=== PATIENT | female | born 1985 | race Caucasian/White ===

== ENCOUNTER 2016-09-22 18:10 | Emergency (ER) | payer MEDICAID ==
[2016-09-22 18:14] VITALS: BP 145/83; PULSE 81; RESP 16; TEMP 98.5; O2SAT 100
[2016-09-22] MEDS ORDERED: Lidocaine 1% Inj (20ml) ONE (19:07)
--- NOTE | 2016-09-22 19:37 | ED PDOC ---
HPI: Wound Care - HPI Time Seen by Provider: 09/22/16 19:34 Chief Complaint (Nursing): Upper Extremity Problem/Injury Chief Complaint (Provider): laceration History Per: Patient Additional Complaint(s): 30yo F in ED sustained laceration to left fifth finger s/p varnish blender blade while cleaning tetantus is uptodate. pt admits to bleeding. no dec ROM of finger no numbness and is right hand dominant Past Medical History Reviewed: Historical Data, Nursing Documentation, Vital Signs Vital Signs: Last Vital Signs Temp 98.5 F 09/22/16 18:11 Pulse 81 09/22/16 18:11 Resp 16 09/22/16 18:11 BP 145/83 09/22/16 18:11 Pulse Ox 100 09/22/16 18:11 - Medical History PMH: No Chronic Diseases - Family History Family History: States: No Known Family Hx, Unknown Family Hx - Allergies Allergies/Adverse Reactions: Allergies Allergy/AdvReac Type Severity Reaction Status Date / Time iodine Allergy RASH Verified 06/12/16 18:15 Review of Systems ROS Statement: Except As Marked, All Systems Reviewed And Found Negative Constitutional: Negative for: Fever, Chills Skin: Positive for: Lesions Physical Exam - Reviewed Nursing Documentation Reviewed: Yes Vital Signs Reviewed: Yes - Physical Exam Appears: Positive for: Well, Non-toxic, No Acute Distress Head Exam: Positive for: ATRAUMATIC, NORMAL INSPECTION, NORMOCEPHALIC Skin: Positive for: Normal Color, Warm, DRY Cardiovascular/Chest: Positive for: Regular Rate, Rhythm Respiratory: Positive for: CNT, Normal Breath Sounds Back: Positive for: Other (right hand:fifith digit volar side laceration .75cm linear active bleeding FROM digit no tendon involvement no FB noted. no swelling no defomirty. ) Extremity: Positive for: Normal ROM Neurologic/Psych: Positive for: Alert, Oriented - ECG O2 Sat by Pulse Oximetry: 100 Procedure: Wound Repair - Time Performed Time Performed: 19:39 - Time Out Time Out: Side verified, Site verified, Patient ID confirmed, Sterile procedures obs. - Consent Obtained Consent obtained: Emergent consent implied - Performed by Performed by: Mid-level Provider - Indications Indication(s):: Laceration - Location Finger:: Right, Little Shape:: Linear Dimensions Length cm: .75 Depth:: Epidermis - Anesthetic Technique Anesthetic Technique: Local Local/Regional Anesthetic:: Lidocaine 1% - Debris Debris:: None - Irrigated Irrigated with ml of normal saline: NS and betadine irrigiation - Complexity Complexity:: Simple (one layer) - Wound repair method Sutures:: # (5), Size (5-0), Type (nylon), Technique (simple interrupted) - Patient tolerated procedure Patient Tolerated Procedure:: Well (given finger splint.) Medical Decision Making Medical Decision Making: pt advised to wear splint not wet wound and return in 6-7 days for removal. Disposition - Clinical Impression Clinical Impression: Laceration - Patient ED Disposition Is Patient to be Admitted: No Counseled Patient/Family Regarding: Diagnosis, Need For Followup - Disposition Disposition: Routine/Home Disposition Time: 19:41 Condition: STABLE Additional Instructions: return to ED in 6-7 days for removal keep wound clean and do not wet Instructions: Laceration (ED), Care For Your Stitches (ED), Finger Laceration ( ED)
== END 2016-09-22 19:47 | disposition home or self-care (01) ==
LOC: H.ER 18:10
DX: S61.217A Laceration without foreign body of left little finger without damage to nail, initial encounter (principal); W29.0XXA Contact with powered kitchen appliance, initial encounter; Y93.G1 Activity, food preparation and clean up; Y92.9 Unspecified place or not applicable

== ENCOUNTER 2017-06-21 15:51 | Emergency (ER) | payer MEDICAID ==
[2017-06-21 15:59] VITALS: BP 141/76; PULSE 70; RESP 16; TEMP 97.8; O2SAT 100
[2017-06-21 17:58] LABS: SQUAMOUS EPITHIAL 1 /hpf (0-5); URINE BACTERIA RARE (<OCC); URINE BILIRUBIN NEGATIVE (NEGATIVE); URINE BLOOD LARGE (NEGATIVE); URINE CLARITY CLOUDY (Clear); URINE COLOR YELLOW (YELLOW); URINE GLUCOSE (UA) NEG (Normal); URINE LEUKOCYTE ESTERASE LARGE Leu/uL (Negative); URINE NITRATE NEGATIVE (NEGATIVE); URINE PROTEIN NEGATIVE (NEGATIVE); URINE UROBILINOGEN 0.2-1.0 mg/dL (0.2-1.0)
--- NOTE | 2017-06-21 18:29 | ED PDOC ---
HPI: Abdomen Time Seen by Provider: 06/21/17 16:16 Chief Complaint (Nursing): Abdominal Pain Chief Complaint (Provider): Suprapubic pressure with urination, History Per: Patient History/Exam Limitations: no limitations Onset/Duration Of Symptoms: Days (1) Outside of [place] travel?: No Current Symptoms Are (Timing): Still Present Location Of Pain/Discomfort: Suprapubic Quality Of Discomfort: Dull Additional Complaint(s): Pt reports dysuria and suprapubic pain, central only during urination. Pt states she has appointment with OB tomorrow for . PT states she is approx 8 weeks . No vaginal bleeding. No vaginal discharge. Past Medical History Reviewed: Historical Data, Nursing Documentation, Vital Signs Vital Signs: Last Vital Signs Temp 97.8 F 06/21/17 15:56 Pulse 70 06/21/17 15:56 Resp 16 06/21/17 15:56 BP 141/76 06/21/17 15:56 Pulse Ox 100 06/21/17 15:56 - Medical History PMH: No Chronic Diseases - Surgical History Surgical History: No Surg Hx - Family History Family History: States: Unknown Family Hx - Living Arrangements Living Arrangements: With Family - Social History Current smoker - smoking cessation education provided: No - Home Medications Home Medications: Ambulatory Orders Medication Instructions Recorded Nitrofurantoin Macrocrystals 100 mg PO BID #10 cap 06/21/17 [Macrobid] - Allergies Allergies/Adverse Reactions: Allergies Allergy/AdvReac Type Severity Reaction Status Date / Time iodine Allergy RASH Verified 06/21/17 15:56 Review of Systems ROS Statement: Except As Marked, All Systems Reviewed And Found Negative Constitutional: Negative for: Fever, Chills Genitourinary Female: Positive for: Dysuria, Frequency. Negative for: Vaginal Discharge, Vaginal Bleeding, Pelvic Pain Physical Exam - Reviewed Nursing Documentation Reviewed: Yes Vital Signs Reviewed: Yes - Physical Exam Appears: Positive for: Well, Non-toxic, No Acute Distress Head Exam: Positive for: ATRAUMATIC, NORMAL INSPECTION, NORMOCEPHALIC Skin: Positive for: Normal Color, Warm, DRY Eye Exam: Positive for: Normal appearance ENT: Positive for: Normal ENT Inspection Neck: Positive for: Normal, Painless ROM Cardiovascular/Chest: Positive for: Regular Rate, Rhythm Respiratory: Positive for: CNT, Normal Breath Sounds Gastrointestinal/Abdominal: Positive for: Normal Exam, Bowel Sounds, Soft. Negative for: Tenderness Back: Positive for: Normal Inspection. Negative for: L CVA Tenderness, R CVA Tenderness Extremity: Positive for: Normal ROM Neurologic/Psych: Positive for: Alert, Oriented - ECG O2 Sat by Pulse Oximetry: 100 Disposition - Clinical Impression Clinical Impression: UTI (urinary tract infection) - Patient ED Disposition Is Patient to be Admitted: No Counseled Patient/Family Regarding: Diagnosis, Need For Followup, Rx Given - Disposition Disposition: Routine/Home Disposition Time: 18:27 Condition: STABLE Prescriptions: Nitrofurantoin Macrocrystals [Macrobid] 100 mg PO BID #10 cap Instructions: Urinary Tract Infection in Women (ED)
== END 2017-06-21 18:30 | disposition home or self-care (01) ==
LOC: H.ER 15:51
DX: O23.40 Unspecified infection of urinary tract in pregnancy, unspecified trimester (principal)

== ENCOUNTER 2017-08-24 19:08 | Inpatient (IN) | payer MEDICAID ==
--- NOTE | 2017-08-24 19:44 | ED PDOC ---
HPI: Abdomen Time Seen by Provider: 08/24/17 19:19 Chief Complaint (Nursing): Abdominal Pain History Per: Patient History/Exam Limitations: no limitations Onset/Duration Of Symptoms: Days (2), Gradual, Worse Since (today) Current Symptoms Are (Timing): Still Present Severity: Mild Location Of Pain/Discomfort: RLQ, Suprapubic Quality Of Discomfort: Dull, Aching Associated Symptoms: denies: Fever, Chills, Nausea, Vomiting, Diarrhea, Back Pain, Chest Pain, Constipation, Urinary Symptoms Exacerbating Factors: None Alleviating Factors: None Additional History Per: Patient Additional Complaint(s): 16 weeks complaining of abdominal cramping. Had spotting this morning but none now. no trauma no urinary complaints Past Medical History Reviewed: Historical Data, Nursing Documentation, Vital Signs Vital Signs: Last Vital Signs Temp 98.1 F 08/24/17 19:11 Pulse 98 H 08/24/17 19:11 Resp 18 08/24/17 19:11 BP 122/88 08/24/17 19:11 Pulse Ox 99 08/24/17 19:46 - Family History Family History: States: Unknown Family Hx - Living Arrangements Living Arrangements: With Family - Social History Current smoker - smoking cessation education provided: No - Home Medications Home Medications: Ambulatory Orders Medication Instructions Recorded No Known Home Med 08/24/17 - Allergies Allergies/Adverse Reactions: Allergies Allergy/AdvReac Type Severity Reaction Status Date / Time iodine Allergy RASH Verified 06/21/17 15:56 Review of Systems ROS Statement: Except As Marked, All Systems Reviewed And Found Negative Constitutional: Negative for: Fever, Chills Cardiovascular: Negative for: Chest Pain, Palpitations Respiratory: Negative for: Cough, Shortness of Breath Gastrointestinal: Negative for: Nausea, Vomiting, Abdominal Pain Musculoskeletal: Negative for: Neck Pain Neurological: Negative for: Weakness, Numbness Physical Exam - Reviewed Nursing Documentation Reviewed: Yes Vital Signs Reviewed: Yes - Physical Exam Appears: Positive for: Uncomfortable Head Exam: Positive for: ATRAUMATIC, NORMAL INSPECTION, NORMOCEPHALIC Eye Exam: Positive for: Normal appearance Neck: Positive for: Normal, Painless ROM, Supple. Negative for: Decreased ROM, Limited ROM, Trachea Midline Cardiovascular/Chest: Positive for: Regular Rate, Rhythm, Chest Non Tender. Negative for: Edema, Murmur, Bradycardia, Tachycardia Respiratory: Positive for: Normal Breath Sounds. Negative for: Decreased Breath Sounds, Accessory Muscle Use, Crackles, Rales, Rhonchi, Stridor, Wheezing , Respiratory Distress Gastrointestinal/Abdominal: Positive for: Normal Exam, Bowel Sounds, Soft, Tenderness (mild rlq). Negative for: Organomegaly, Mass, Distended, Guarding, Rebound, Hernia, Asicites Back: Positive for: Normal Inspection. Negative for: L CVA Tenderness, R CVA Tenderness, Vertebral Tenderness Extremity: Positive for: Normal ROM. Negative for: Tenderness, Pedal Edema, Calf Tenderness, Deformity, Swelling Neurologic/Psych: Positive for: Alert, supervisor of guidance and testing II-XII, Oriented, Mood/Affect (calm) . Negative for: Motor/Sensory Deficits, Aphasia, Facial Droop - Laboratory Results Result Diagrams: 08/24/17 20:17 08/24/17 20:17 - ECG O2 Sat by Pulse Oximetry: 99 Pulse Ox Interpretation: Normal - Progress ED Course And Treament: pt seen and eval by surgical nurse advise gb us and mri in the am, repeat abd exam reveals mild tenderness but unchanged, per Dr samuel will have ob baton twirler to consult. all of pt's questions were answered and pt agree's with plan. Re-evaluation Time: 23:06 Condition: Improved Disposition - Clinical Impression Clinical Impression: Abdominal pain during - Patient ED Disposition Is Patient to be Admitted: Yes Counseled Patient/Family Regarding: Studies Performed, Diagnosis - Disposition Disposition Time: 22:00 Condition: STABLE Forms: [facility] (German) - Pt Status Changed To: Hospital Disposition Of: Observation - POA Present On Arrival: None
[2017-08-24 20:20] LABS: SQUAMOUS EPITHIAL 12 /hpf (0-5); URINE BACTERIA RARE (<OCC); URINE BILIRUBIN NEGATIVE (NEGATIVE); URINE BLOOD NEGATIVE (NEGATIVE); URINE CLARITY CLOUDY (Clear); URINE COLOR YELLOW (YELLOW); URINE GLUCOSE (UA) NEG (Normal); URINE LEUKOCYTE ESTERASE NEG Leu/uL (Negative); URINE PROTEIN NEGATIVE (NEGATIVE); URINE UROBILINOGEN 0.2-1.0 mg/dL (0.2-1.0)
[2017-08-24 20:25] LABS: BASO # 0.1 K/uL (0.0-0.2); BASO % 0.7 % (0.0-2.0); EOS # 0.1 K/uL (0.0-0.7); EOS % 1.2 % (0.0-4.0); HEMOGLOBIN 12.4 g/dL (12.0-16.0); LYMPH # 3.4 K/uL (1.0-4.3); LYMPH % 27.3 % (20.0-40.0); MEAN CELL VOLUME 80.9 fl (81.0-99.0); MEAN CORPUSCULAR HGB CONC 33.4 g/dL (33.0-37.0); MEAN PLATELET VOLUME 9.3 fl (7.2-11.7); MONO # 0.9 K/uL (0.0-0.8); MONO % 7.5 % (0.0-10.0); NEUT # 7.8 K/uL (1.8-7.0); NEUT % 63.3 % (50.0-75.0); RBC 4.61 Mil/uL (3.80-5.20); WHITE BLOOD COUNT 12.4 K/uL (4.8-10.8)
[2017-08-24 20:36] LABS: ALBUMIN 3.7 g/dL (3.5-5.0); ALT/SGPT 20 U/L (9-52); AMYLASE 64 U/L (30-110); AST/SGOT 40 U/L (14-36); BLOOD UREA NITROGEN 11 mg/dl (7-17); CALCIUM 9.3 mg/dL (8.4-10.2); GFR AFRICAN-AMERICAN > 60; GFR NON-AFRICAN AMERICAN > 60; LIPASE 66 U/L (23-300)
--- NOTE | 2017-08-24 21:06 | US ---
EXAM: US Abdomen Limited, Appendix CLINICAL HISTORY: 31 years old, female; Pain; Abdominal pain; Localized; Lower; ; Additional info: Rlq abd pain TECHNIQUE: Real-time ultrasound of the right lower quadrant with image documentation. COMPARISON: No relevant prior studies available. FINDINGS: Appendix: Not visualized. Free fluid: No significant free fluid. IMPRESSION: 1. Nonvisualization of appendix.
--- NOTE | 2017-08-24 22:18 | CP.PCM.CON ---
<Lg Kimble - Last Filed: 08/25/17 06:23> History of Present Illness - History of Present Illness History of Present Illness: General Surgery Consult Note for Dr. Hoffman Reason for consult: Right sided abdominal pain 31 F 16 weeks 3 days presents to [facility] for complaint of Right sided abdominal pain. Patient was seen and evaluated in the ED. Patient states that pain began 1 day ago while sitting at home. Patient reports sudden onset. She has never experienced pain like this before. Patient also states an episode of vaginal spotting. She began to worry and decided to come to the ED since the pain lasted for 24 hours without resolving. She rates pain as moderate to severe. She describes pain as constant and sharp located in RUQ/RLQ. Movement and palpation exacerbates pain while nothing alleviates it. Patient admits nausea that began in ED. Denies fever/chills, chest pain, SOB, vomiting, diarrhea, urinary symptoms. PMD: [facility] TREE CARE FOREMAN: Dr. 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 - Review of Systems All systems: reviewed and no additional remarkable complaints except (12 point ROS negative unless otherwise stated in HPI) Past Patient History - Infectious Disease Hx of Infectious Diseases: None - Past Social History Smoking Status: Never Smoked - PSYCHIATRIC Hx Substance Use: No - SURGICAL HISTORY Hx Surgeries: Yes Hx Section: Yes (x1) Other/Comment: "lumpectomy" - ANESTHESIA Hx Anesthesia: Yes Hx Anesthesia Reactions: No Meds Allergies/Adverse Reactions: Allergies Allergy/AdvReac Type Severity Reaction Status Date / Time iodine Allergy RASH Verified 06/21/17 15:56 Physical Exam - Constitutional Appears: No Acute Distress - Head Exam Head Exam: ATRAUMATIC, NORMOCEPHALIC - Eye Exam Eye Exam: EOMI, Normal appearance Pupil Exam: PERRL - ENT Exam ENT Exam: Mucous Membranes Moist - Neck Exam Neck exam: Negative for: Tenderness - Respiratory Exam Respiratory Exam: NORMAL BREATHING PATTERN - Cardiovascular Exam Cardiovascular Exam: REGULAR RHYTHM - GI/Abdominal Exam GI & Abdominal Exam: Distended (16 weeks ), Soft, Tenderness (RUQ/RLQ). absent: Firm, Guarding, Hernia, Rebound, Rigid - Extremities Exam Extremities exam: Positive for: pedal pulses present. Negative for: calf tenderness - Back Exam Back exam: absent: CVA tenderness (L), CVA tenderness (R) - Neurological Exam Neurological exam: Alert, CN II-XII Intact, Oriented x3 - Skin Skin Exam: Dry, Intact, Normal Color, Warm Results - Vital Signs Recent Vital Signs: Last Vital Signs Temp 98.1 F 08/24/17 19:11 Pulse 98 H 08/24/17 19:11 Resp 18 08/24/17 19:11 BP 122/88 08/24/17 19:11 Pulse Ox 99 08/24/17 19:46 - Labs Result Diagrams: 08/24/17 20:17 08/24/17 20:17 Labs: Laboratory Results - last 24 hr 08/24/17 08/24/17 08/24/17 20:08 20:17 20:17 WBC 12.4 H RBC 4.61 Hgb 12.4 Hct 37.3 MCV 80.9 L MCH 27.0 MCHC 33.4 RDW 14.0 Plt Count 201 MPV 9.3 Neut % (Auto) 63.3 Lymph % (Auto) 27.3 [place] % (Auto) 7.5 Eos % (Auto) 1.2 Baso % (Auto) 0.7 Neut # (Auto) 7.8 H Lymph # (Auto) 3.4 [place] # (Auto) 0.9 H Eos # (Auto) 0.1 Baso # (Auto) 0.1 Sodium 139 Potassium 4.4 Chloride 100 Carbon Dioxide 26 Anion Gap 17 BUN 11 Creatinine 0.6 L Est GFR ( Amer) > 60 Est GFR (Non-Af Amer) > 60 Random Glucose 74 Calcium 9.3 Total Bilirubin 0.6 AST 40 H ALT 20 Alkaline Phosphatase 43 Total Protein 7.2 Albumin 3.7 Globulin 3.5 Albumin/Globulin Ratio 1.0 Amylase 64 Lipase 66 Urine Color Yellow Urine Clarity Cloudy Urine pH 6.0 Ur Specific [place] 1.021 Urine Protein Negative Urine Glucose (UA) Neg Urine Ketones Negative Urine Blood Negative Urine Nitrate Negative Urine Bilirubin Negative Urine Urobilinogen 0.2-1.0 Ur Leukocyte Esterase Neg Urine RBC (Auto) 2 Urine Microscopic WBC 1 Ur Squamous Epith Cells 12 H Urine Bacteria Rare Assessment & Plan - Assessment and Plan (Free Text) Assessment: 31 F 16 weeks presents with Right sided abdominal pain Plan: -NPO -f/u MRI -IV fluids -Unasyn (category B in ) -Recommend production welding supervisor consult -Medical management as per primary -Discussed with Dr. Dalton Kimble PGY1 - Date & Time Date: 08/24/17 Time: 10:20 <Pavan Hoffman - Last Filed: 08/26/17 19:39> Results - Vital Signs Recent Vital Signs: Last Vital Signs Temp 98.4 F 08/26/17 15:44 Pulse 78 08/26/17 15:44 Resp 18 08/26/17 15:44 BP 104/66 08/26/17 15:44 Pulse Ox 95 08/26/17 15:44 - Labs Result Diagrams: 08/26/17 05:45 08/26/17 05:45 Labs: Laboratory Results - last 24 hr 08/26/17 08/26/17 05:45 05:45 WBC 11.9 H RBC 4.33 Hgb 11.8 L Hct 34.9 MCV 80.7 L MCH 27.4 MCHC 33.9 RDW 13.7 Plt Count 176 MPV 9.6 Neut % (Auto) 79.7 H Lymph % (Auto) 15.3 L [place] % (Auto) 4.9 Eos % (Auto) 0.0 Baso % (Auto) 0.1 Neut # (Auto) 9.5 H Lymph # (Auto) 1.8 [place] # (Auto) 0.6 Eos # (Auto) 0.0 Baso # (Auto) 0.0 Sodium 138 Potassium 3.8 Chloride 103 Carbon Dioxide 22 Anion Gap 17 BUN 5 L Creatinine 0.5 L Est GFR ( Amer) > 60 Est GFR (Non-Af Amer) > 60 Random Glucose 82 Calcium 8.2 L Total Bilirubin 0.7 AST 43 H D ALT 23 Alkaline Phosphatase 47 Total Protein 6.3 Albumin 3.0 L Globulin 3.2 Albumin/Globulin Ratio 0.9 L Attending/Attestation - Attestation I have personally seen and examined this patient.: Yes I have fully participated in the care of the patient.: Yes I have reviewed all pertinent clinical information: Yes Notes (Text): Pt was seen and examined at bedside Agree with above note and assessment Pt with Right side abdominal pain for 1 day with IUP of 16 weeks Abdomen: Soft ,NT, Right flank tenderness, Gravid uterus present Labs and radiology reviewed MRI is suggestive of Acute Appendicitis Ass: Acute Appendicitis with 16 week IUP Plan: OR for Lap Appendectomy Consent NPO, IVF IV antibiotics ED SPECIAL EDUCATION TEACHER consult c.w current mx Plan d.w pt in detail Risk and benefit explained in detail.
[2017-08-24] MEDS ORDERED: Sodium Chloride 0.9% 1,000 ML IV ONE (23:03)
--- NOTE | 2017-08-24 23:17 | CP.PCM.HP ---
History of Present Illness - History of Present Illness History of Present Illness: PMD: [facility] Ob/Gyne: Dr Pillai Chief Complaint: Abdominal Pain The patient was seen and examined in the ED HPI: 31 years old female with no significant medical hx is 16 weeks . She comes with 2 days of sudden unset of Right Lower Quadrant abdominal pain, gradually becoming more severe, dull and aching in character, not relieved with her home remedies. She referred no fever, chills, nausea, vomits, diarrhea, dysuria nor urinary frequency. She does refer some spotting on the morning of this admission, but this has stopped. 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 FH: Significant for Breast Ca; DM; HTN Allergy: Iodine Medication: None Present on Admission - Present on Admission Any Indicators Present on Admission: No History of DVT/PE: No History of Uncontrolled Diabetes: No Urinary Catheter: No Decubitus Ulcer Present: No Review of Systems - Constitutional Constitutional: absent: Anorexia, Chills, Fever, Headache, Lethargy - EENT Eyes: absent: Diplopia, Photophobia, Requires Corrective Lenses, Sees Flashes Ears: absent: Decreased Hearing, Ear Discharge, Ear Pain, Tinnitus Nose/Mouth/Throat: absent: Epistaxis, Nasal Congestion, Nasal Discharge, Sinus Pain, Sinus Pressure - Cardiovascular Cardiovascular: absent: Chest Pain, Dyspnea, Edema - Respiratory Respiratory: absent: Cough, Dyspnea, Wheezing, Stridor, Chest Congestion - Gastrointestinal Gastrointestinal: Abdominal Pain. absent: Constipation, Diarrhea, Nausea, Vomiting - Genitourinary Genitourinary: absent: Dysuria, Flank Pain, Hematuria, Urinary Frequency - Musculoskeletal Musculoskeletal: absent: Arthralgias, Back Pain, Muscle Cramps, Muscle Weakness - Integumentary Integumentary: absent: Pruritus, Rash, Skin Ulcer, Sores, Striae, Swelling - Neurological Neurological: absent: Confusion, Focal Weakness, Headaches, Weakness - Psychiatric Psychiatric: absent: Anxiety, Depression, Panic Attacks - Endocrine Endocrine: absent: Palpitations, Polydipsia, Polyphagia, Polyuria - Hematologic/Lymphatic Hematologic: absent: Easy Bleeding, Easy Bruising Past Patient History - Infectious Disease Hx of Infectious Diseases: None - Past Medical History & Family History Past Medical History?: No - Past Social History Smoking Status: Never Smoked Chewing Tobacco Use: No Cigar Use: No Alcohol: Social Drugs: Denies Home Situation {Lives}: With Family - CARDIAC Hx Cardiac Disorders: No - PULMONARY Hx Respiratory Disorders: No - NEUROLOGICAL Hx Neurological Disorder: No - HEENT Hx HEENT Problems: No - RENAL Hx Chronic Kidney Disease: No - ENDOCRINE/METABOLIC Hx Endocrine Disorders: No - HEMATOLOGICAL/ONCOLOGICAL Hx Blood Disorders: No - INTEGUMENTARY Hx Dermatological Problems: No - MUSCULOSKELETAL/RHEUMATOLOGICAL Hx Musculoskeletal Disorders: No - GASTROINTESTINAL Hx Gastrointestinal Disorders: No - GENITOURINARY/GYNECOLOGICAL Hx Genitourinary Disorders: No - PSYCHIATRIC Hx Psychophysiologic Disorder: No Hx Substance Use: No - SURGICAL HISTORY Hx Surgeries: Yes Hx Section: Yes (x1) Other/Comment: "lumpectomy" - ANESTHESIA Hx Anesthesia: Yes Hx Anesthesia Reactions: No Meds Allergies/Adverse Reactions: Allergies Allergy/AdvReac Type Severity Reaction Status Date / Time iodine Allergy RASH Verified 06/21/17 15:56 Physical Exam - Constitutional Appears: No Acute Distress - Head Exam Head Exam: ATRAUMATIC, NORMAL INSPECTION, NORMOCEPHALIC - Eye Exam Eye Exam: EOMI, Normal appearance Pupil Exam: NORMAL ACCOMODATION, PERRL - ENT Exam ENT Exam: Mucous Membranes Moist, Normal Exam - Neck Exam Neck exam: Positive for: Full Rom, Normal Inspection. Negative for: Lymphadenopathy, Tenderness - Respiratory Exam Respiratory Exam: Clear to Auscultation Bilateral. absent: Rales, Rhonchi, Wheezes - Cardiovascular Exam Cardiovascular Exam: REGULAR RHYTHM, RRR, +S1, +S2. absent: Gallop, JVD - GI/Abdominal Exam Additional comments: Flat,soft, +ve bowel sounds, tender at RUQ and RLQ on palpation. No guarding nor rebound tenderness. - Rectal Exam Rectal Exam: Deferred - Extremities Exam Extremities exam: Positive for: full ROM, normal inspection. Negative for: calf tenderness, joint swelling, pedal edema - Back Exam Back exam: NORMAL INSPECTION. absent: CVA tenderness (L), CVA tenderness (R) - Neurological Exam Neurological exam: Alert, CN II-XII Intact, Oriented x3, Reflexes Normal - Psychiatric Exam Psychiatric exam: Normal Affect, Normal Mood - Skin Skin Exam: Dry, Intact, Normal Color, Warm Results - Vital Signs Recent Vital Signs: Last Vital Signs Temp 98.1 F 08/24/17 19:11 Pulse 98 H 08/24/17 19:11 Resp 18 08/24/17 19:11 BP 122/88 08/24/17 19:11 Pulse Ox 99 08/24/17 23:08 - Labs Result Diagrams: 08/24/17 20:17 08/24/17 20:17 Labs: Laboratory Results - last 24 hr 08/24/17 08/24/17 08/24/17 20:08 20:17 20:17 WBC 12.4 H RBC 4.61 Hgb 12.4 Hct 37.3 MCV 80.9 L MCH 27.0 MCHC 33.4 RDW 14.0 Plt Count 201 MPV 9.3 Neut % (Auto) 63.3 Lymph % (Auto) 27.3 [place] % (Auto) 7.5 Eos % (Auto) 1.2 Baso % (Auto) 0.7 Neut # (Auto) 7.8 H Lymph # (Auto) 3.4 [place] # (Auto) 0.9 H Eos # (Auto) 0.1 Baso # (Auto) 0.1 Sodium 139 Potassium 4.4 Chloride 100 Carbon Dioxide 26 Anion Gap 17 BUN 11 Creatinine 0.6 L Est GFR ( Amer) > 60 Est GFR (Non-Af Amer) > 60 Random Glucose 74 Calcium 9.3 Total Bilirubin 0.6 AST 40 H ALT 20 Alkaline Phosphatase 43 Total Protein 7.2 Albumin 3.7 Globulin 3.5 Albumin/Globulin Ratio 1.0 Amylase 64 Lipase 66 Urine Color Yellow Urine Clarity Cloudy Urine pH 6.0 Ur Specific [place] 1.021 Urine Protein Negative Urine Glucose (UA) Neg Urine Ketones Negative Urine Blood Negative Urine Nitrate Negative Urine Bilirubin Negative Urine Urobilinogen 0.2-1.0 Ur Leukocyte Esterase Neg Urine RBC (Auto) 2 Urine Microscopic WBC 1 Ur Squamous Epith Cells 12 H Urine Bacteria Rare - Imaging and Cardiology US - abdomen Status: Report reviewed by me Additional comment: EXAM: US Abdomen Limited, Right Upper Quadrant FINDINGS: Liver: Enlarged, 18.2 cm. Normal echogenicity. No mass. No intrahepatic bile duct dilatation. Gallbladder: Fold. No gallstones. No wall thickening. No pericholecystic fluid. No sonographic Watson's sign. Common bile duct: No dilatation. No stones. Pancreas: Unremarkable as visualized. Right kidney: Normal echogenicity. No hydronephrosis. IMPRESSION: 1. No acute findings. 2. Non-acute findings are described above. Obstetric US Additional comment: EXAM: US After First Trimester, Transabdominal FINDINGS: Fetus: Single live intrauterine gestation. Heart rate: heart rate of 147 beats per minute. Presentation: Breech. Placenta: Posterior fundal. No placenta previa or abruption. Amniotic fluid: Normal. Anatomy: No gross anomaly is appreciated. BIOMETRICS Gestational age by US: Estimated gestational age of 16 weeks 3 days by measurements. EFW: 155 g. MATERNAL: Uterus: Unremarkable. No myometrial mass. Cervix: No cervical dilatation or effacement. Adnexa: Ovaries not visualized. No adnexal masses. Free fluid: No significant free fluid. IMPRESSION: 1. Single live intrauterine gestation. Assessment & Plan - Assessment and Plan (Free Text) Assessment: #. RLQ abdominal pain #. Leukocytosis #. 16 weeks Gestation Plan: 31 years old female with no significant medical hx is 16 weeks . She comes with 2 days of sudden unset of Right Lower Quadrant abdominal pain, gradually becoming more severe, dull and aching in character, not relieved with her home remedies. #. RLQ abdominal pain r/p appendicitis -Consult Dr Hoffman surgery - Abdominal Ultra Sound: non visulization of appendix - NPO - IV fluid - MRI of Abdomen ordered by Surgery #. Leukocytosis etiology unclear - Blood Culture - Follow WBC #. 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 DVT Prophylaxis with SCD PRN #. Code Status: Full - Date & Time Date: 08/24/17 Time: 23:17
--- NOTE | 2017-08-24 23:29 | US ---
EXAM: US Abdomen Limited, Right Upper Quadrant CLINICAL HISTORY: 31 years old, female; Pain; Abdominal pain; Epigastric; ; Additional info: Ruq abd pain TECHNIQUE: Real-time ultrasound of the right upper quadrant with image documentation. COMPARISON: US - ABDOMEN LIMITED 2017-08-24 20:11 FINDINGS: Liver: Enlarged, 18.2 cm. Normal echogenicity. No mass. No intrahepatic bile duct dilatation. Gallbladder: Fold. No gallstones. No wall thickening. No pericholecystic fluid. No sonographic Watson's sign. Common bile duct: No dilatation. No stones. Pancreas: Unremarkable as visualized. Right kidney: Normal echogenicity. No hydronephrosis. IMPRESSION: 1.No acute findings. 2.Non-acute findings are described above.
[2017-08-25] MEDS: Sodium Chloride 0.9% 1,000 ML IV SCH ×2 (06:22→17:01)
[2017-08-25 06:32] LABS: MEAN CELL VOLUME 81.4 fl (81.0-99.0); MEAN CORPUSCULAR HEMOGLOBIN 27.7 pg (27.0-31.0); RBC 4.35 Mil/uL (3.80-5.20); WHITE BLOOD COUNT 9.8 K/uL (4.8-10.8)
[2017-08-25 06:47] LABS: ALBUMIN 3.1 g/dL (3.5-5.0); ALT/SGPT 27 U/L (9-52); AST/SGOT 14 U/L (14-36); BLOOD UREA NITROGEN 9 mg/dl (7-17); CALCIUM 8.4 mg/dL (8.4-10.2); GFR AFRICAN-AMERICAN > 60; GFR NON-AFRICAN AMERICAN > 60
--- NOTE | 2017-08-25 09:35 | US ---
PROCEDURE: OB Pelvic Ultrasound HISTORY: 16 weeks crampy pain LMP: 04/23/2017 COMPARISON: Pelvic ultrasound 08/11/2013 FINDINGS: UTERUS: Placenta: Posterior, fundal Presentation: Breech BPD: 3.5 cm compatible with estimated gestational age of 16 weeks, 6 days HC: 12.6 cm compatible with estimated gestational age of 16 weeks, 2 days HC: 10.0 cm compatible with estimated gestational age of 16 weeks, 0 days FL: 2.3 cm compatible with estimated gestational age of 16 weeks, 5 days Heart rate: 147 bpm. age (Ultrasound estimated): 16 weeks, 3 days Sophie-gestational hemorrhage: None. Date of delivery (Ultrasound estimated) : 02/05/2018 CERVIX: Measures 5.9 cm. Long and closed. No cervical abnormality seen. RIGHT OVARY: Not visualized LEFT OVARY: Not visualized FREE FLUID: None. OTHER FINDINGS: None. IMPRESSION: Single viable intrauterine gestation with average ultrasound age of 16 weeks, 3 days. heart rate 147 beats per minute. Cervix long and closed. No free fluid.
--- NOTE | 2017-08-25 10:04 | CP.PCM.PN ---
<Bo Wilhelm - Last Filed: 08/25/17 10:02> Subjective - Date & Time of Evaluation Date of Evaluation: 08/25/17 Time of Evaluation: 10:03 - Subjective Subjective: General Surgery Progress Note for Dr. Hoffman This pt was seen and examined this AM at bedside. No MRI done overnight. Pt complaining of RLQ pain, however denies fevers chills chest pain nausea vomiting diarrhea. Objective - Vital Signs/Intake and Output Vital Signs (last 24 hours): Temp Pulse Resp BP Pulse Ox 98.3 F 74 18 109/71 98 08/25/17 07:45 08/25/17 07:45 08/25/17 07:45 08/25/17 07:45 08/25/17 07:45 - Medications Medications: Current Medications Sodium Chloride (Sodium Chloride 0.9%) 1,000 mls @ 100 mls/hr IV .Q10H [facility]EL Stop: 08/26/17 06:06 Last Admin: 08/25/17 06:22 Dose: 100 mls/hr Ampicillin Sodium/Sulbactam (Sodium 3 gm/ Sodium Chloride) 100 mls @ 100 mls/ hr IVPB Q6 [facility]EL PRN Reason: Protocol Last Admin: 08/25/17 08:59 Dose: 100 mls/hr - Labs Labs: 08/25/17 06:05 08/25/17 06:05 - Constitutional Appears: Non-toxic, No Acute Distress - Head Exam Head Exam: ATRAUMATIC, NORMOCEPHALIC - Eye Exam Eye Exam: EOMI, Normal appearance - ENT Exam ENT Exam: Mucous Membranes Moist - Neck Exam Neck Exam: Normal Inspection - Respiratory Exam Respiratory Exam: NORMAL BREATHING PATTERN - Cardiovascular Exam Cardiovascular Exam: REGULAR RHYTHM - GI/Abdominal Exam GI & Abdominal Exam: Soft. absent: Firm, Guarding, Rigid, Tenderness - Neurological Exam Neurological Exam: Alert, Awake - Psychiatric Exam Psychiatric exam: Normal Affect, Normal Mood - Skin Skin Exam: Dry, Intact Assessment and Plan - Assessment and Plan (Free Text) Assessment: 31F with abdominal pain rule out appendicitis Plan: Vital Signs stable Continue unasyn WBC Trending down 12.4 - 9.8 Follow up MRI Follow Up RECOOPERER recs D/W Dr. Dalton Wilhelm PGY2 <Pavan Hoffman - Last Filed: 08/26/17 19:41> Objective - Vital Signs/Intake and Output Vital Signs (last 24 hours): Temp Pulse Resp BP Pulse Ox 98.4 F 78 18 104/66 95 08/26/17 15:44 08/26/17 15:44 08/26/17 15:44 08/26/17 15:44 08/26/17 15:44 - Labs Labs: 08/26/17 05:45 08/26/17 05:45 Attending/Attestation - Attestation I have personally seen and examined this patient.: Yes I have fully participated in the care of the patient.: Yes I have reviewed all pertinent clinical information, including history, physical exam and plan: Yes Notes (Text): Pt was seen and examined at bedside Agree with above note and assessment Spoken to RECOOPERER attending on phone MRI is positive Plan: OR for Lap Appendectomy Consent NPO, IVF IV antibiotics c.w current mx Plan d.w pt in detail Risk and benefit explained in detail.
--- NOTE | 2017-08-25 11:44 | CP.PCM.CON ---
Addendum entered and electronically signed by Osbaldo Warner MD 08/25/17 18 :29: Pt was evaluated and examined after surgical procedure. Pt reports feeling well , pain is under control. --FH positive by doppler US. --Recommend FH by doppler daily while in hospital. --Will follow-up as outpatient with Dr Gomez within 1 week --No further recommendations, HOSPICE/HOME HEALTH AIDE signs off from case. 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 Alana PGY-1. Original Note: <Osbaldo Warner - Last Filed: 08/25/17 11:33> History of Present Illness - History of Present Illness History of Present Illness: 31 y/o Female at 16.3 weeks GA presented to ED complaining of RLQ abdominal pain. Pain is described as sharp constant, was 9/10 yesterday, today 7 /10 intensity, non-radiating and not associated with food intake. Pt had nausea yesterday which resolved today after IV Reglan administration. Pt denies vaginal bleeding, LOF, uterine contractions, urinary complaints or recent change in bowel movements. Pt reports that since 3 months ago, she had 2 episodes or strep pharyngitis, influenza viral infection and Trichomonas infection, all treated successfully with PO antibiotics and antiviral. Last coitus 1 week ago with NO bleeding or vaginal discharge after. PN Care: w/ HOSPICE[facility]HOME HEALTH AIDE [facility] but will transfer to Dr Gomez, [facility] next week. No complications during this until now. Taking her PNV. OBGYN Hx: . 1 due to distress at full term. Last pap smear negative on 06/25/17. Pt reports regular menses since 4 years ago after first child . Before that, menses were irregular, every 2-6 months with normal days of bleeding. No STD's reported by pt. Medications: PNV Allergies: Iodine. PMHx: R breast mass. PSHx: R breast lumpectomy 1 year ago, biopsy with benign results. C/Section 4 years ago. FHx: positive for HTN, DM2 and asthma on both sides of family. SHx: denied tobacco, alcohol or rec drugs. Review of Systems - Constitutional Constitutional: absent: Anorexia, Chills - EENT Eyes: absent: Blurred Vision - Breasts Breasts: absent: Change in Shape, Mass, Pain - Cardiovascular Cardiovascular: absent: Chest Pain, Chest Pain at Rest - Respiratory Respiratory: absent: Cough, Dyspnea - Gastrointestinal Gastrointestinal: Abdominal Pain. absent: Constipation, Diarrhea, Nausea, Vomiting - Genitourinary Genitourinary: absent: Difficulty Urinating, Hematuria, Freq UTI, Hx Renal/ Bladder Calculi - Reproductive: Female Reproductive:Female: Normal Menses. absent: Dysmenorrhea, Dyspareunia, Genital Lesions Past Patient History - Infectious Disease Hx of Infectious Diseases: None - Past Medical History & Family History Past Medical History?: No - Past Social History Smoking Status: Never Smoked - CARDIAC Hx Cardiac Disorders: No - PULMONARY Hx Respiratory Disorders: No - NEUROLOGICAL Hx Neurological Disorder: No - HEENT Hx HEENT Problems: No - RENAL Hx Chronic Kidney Disease: No - ENDOCRINE/METABOLIC Hx Endocrine Disorders: No - HEMATOLOGICAL/ONCOLOGICAL Hx Blood Disorders: No - INTEGUMENTARY Hx Dermatological Problems: No - MUSCULOSKELETAL/RHEUMATOLOGICAL Hx Musculoskeletal Disorders: No - GASTROINTESTINAL Hx Gastrointestinal Disorders: No - GENITOURINARY/GYNECOLOGICAL Hx Genitourinary Disorders: No - PSYCHIATRIC Hx Substance Use: No - SURGICAL HISTORY Hx Surgeries: Yes Hx Section: Yes (x1) Other/Comment: "lumpectomy" - ANESTHESIA Hx Anesthesia: Yes Hx Anesthesia Reactions: No Meds Allergies/Adverse Reactions: Allergies Allergy/AdvReac Type Severity Reaction Status Date / Time iodine Allergy RASH Verified 06/21/17 15:56 - Medications Medications: Current Medications Sodium Chloride (Sodium Chloride 0.9%) 1,000 mls @ 100 mls/hr IV .Q10H [facility] Stop: 08/26/17 06:06 Last Admin: 08/25/17 06:22 Dose: 100 mls/hr Ampicillin Sodium/Sulbactam (Sodium 3 gm/ Sodium Chloride) 100 mls @ 100 mls/ hr IVPB Q6 [facility] PRN Reason: Protocol Last Admin: 08/25/17 08:59 Dose: 100 mls/hr Physical Exam - Head Exam Head Exam: ATRAUMATIC, NORMAL INSPECTION - Eye Exam Eye Exam: EOMI, Normal appearance - ENT Exam ENT Exam: Mucous Membranes Moist - Neck Exam Neck exam: Positive for: Full Rom. Negative for: Meningismus - Respiratory Exam Respiratory Exam: NORMAL BREATHING PATTERN - Cardiovascular Exam Cardiovascular Exam: REGULAR RHYTHM, +S1, +S2 - GI/Abdominal Exam GI & Abdominal Exam: Normal Bowel Sounds, Soft. absent: Guarding, Hypoactive Bowel Sounds, Rebound, Rigid Additional comments: Tenderness over RLQ and RUQ. Watson's positive. Gravid uterus at supra-pubis area. - Exam Additional comments: FHR 146-by doppler US. - Extremities Exam Extremities exam: Positive for: full ROM, normal inspection. Negative for: joint swelling - Neurological Exam Neurological exam: Alert, Oriented x3 Results - Vital Signs Recent Vital Signs: Last Vital Signs Temp 98.3 F 08/25/17 07:45 Pulse 74 08/25/17 07:45 Resp 18 08/25/17 07:45 BP 109/71 08/25/17 07:45 Pulse Ox 98 08/25/17 07:45 - Labs Result Diagrams: 08/25/17 06:05 08/25/17 06:05 Labs: Laboratory Results - last 24 hr 08/24/17 08/24/17 08/24/17 20:08 20:17 20:17 WBC 12.4 H RBC 4.61 Hgb 12.4 Hct 37.3 MCV 80.9 L MCH 27.0 MCHC 33.4 RDW 14.0 Plt Count 201 MPV 9.3 Neut % (Auto) 63.3 Lymph % (Auto) 27.3 [place] % (Auto) 7.5 Eos % (Auto) 1.2 Baso % (Auto) 0.7 Neut # (Auto) 7.8 H Lymph # (Auto) 3.4 [place] # (Auto) 0.9 H Eos # (Auto) 0.1 Baso # (Auto) 0.1 Sodium 139 Potassium 4.4 Chloride 100 Carbon Dioxide 26 Anion Gap 17 BUN 11 Creatinine 0.6 L Est GFR ( Amer) > 60 Est GFR (Non-Af Amer) > 60 Random Glucose 74 Calcium 9.3 Total Bilirubin 0.6 AST 40 H ALT 20 Alkaline Phosphatase 43 Total Protein 7.2 Albumin 3.7 Globulin 3.5 Albumin/Globulin Ratio 1.0 Amylase 64 Lipase 66 Urine Color Yellow Urine Clarity Cloudy Urine pH 6.0 Ur Specific [place] 1.021 Urine Protein Negative Urine Glucose (UA) Neg Urine Ketones Negative Urine Blood Negative Urine Nitrate Negative Urine Bilirubin Negative Urine Urobilinogen 0.2-1.0 Ur Leukocyte Esterase Neg Urine RBC (Auto) 2 Urine Microscopic WBC 1 Ur Squamous Epith Cells 12 H Urine Bacteria Rare Blood Type Antibody Screen BBK History Checked 08/25/17 08/25/17 08/25/17 00:59 06:05 06:05 WBC 9.8 RBC 4.35 Hgb 12.0 Hct 35.4 MCV 81.4 MCH 27.7 MCHC 34.0 RDW 14.0 Plt Count 180 MPV Neut % (Auto) Lymph % (Auto) [place] % (Auto) Eos % (Auto) Baso % (Auto) Neut # (Auto) Lymph # (Auto) [place] # (Auto) Eos # (Auto) Baso # (Auto) Sodium 138 Potassium 3.7 Chloride 102 Carbon Dioxide 23 Anion Gap 17 BUN 9 Creatinine 0.6 L Est GFR ( Amer) > 60 Est GFR (Non-Af Amer) > 60 Random Glucose 82 Calcium 8.4 Total Bilirubin 0.5 AST 14 D ALT 27 Alkaline Phosphatase 45 Total Protein 6.3 Albumin 3.1 L Globulin 3.2 Albumin/Globulin Ratio 1.0 Amylase Lipase Urine Color Urine Clarity Urine pH Ur Specific [place] Urine Protein Urine Glucose (UA) Urine Ketones Urine Blood Urine Nitrate Urine Bilirubin Urine Urobilinogen Ur Leukocyte Esterase Urine RBC (Auto) Urine Microscopic WBC Ur Squamous Epith Cells Urine Bacteria Blood Type AB POSITIVE Antibody Screen Negative BBK History Checked Patient has bt Assessment & Plan - Assessment and Plan (Free Text) Assessment: 31 y/o F at 16 weeks GA, with RLQ abdominal pain, unremarkable previous HOSPICE/HOME HEALTH AIDE Hx, No distress detected. OB Sonogram unremarkable. --OB Ultrasound WNL. heart by Doppler 146-within normal limits. not compromised. --Pt on optimal status, is cleared if necessary abdominal surgery. Plan: 1. Abdominal Pain, RLQ area. - No HOSPICE/HOME HEALTH AIDE pathology suspected. - Continue medical management and follow Gen Surgery recommendations. - F/U MRI abdomen. 2. Second Trimester : - OB Ultrasound was unremarkable. - Heart Rate was 146 by doppler US.-WNL. - Continue Pre-[facility] Care as outpatient. - PN vitamins reinforced. <Cam Saenz - Last Filed: 08/26/17 17:24> Results - Vital Signs Recent Vital Signs: Last Vital Signs Temp 98.4 F 08/26/17 15:44 Pulse 78 08/26/17 15:44 Resp 18 08/26/17 15:44 BP 104/66 08/26/17 15:44 Pulse Ox 95 08/26/17 15:44 - Labs Result Diagrams: 08/26/17 05:45 08/26/17 05:45 Labs: Laboratory Results - last 24 hr 08/26/17 08/26/17 05:45 05:45 WBC 11.9 H RBC 4.33 Hgb 11.8 L Hct 34.9 MCV 80.7 L MCH 27.4 MCHC 33.9 RDW 13.7 Plt Count 176 MPV 9.6 Neut % (Auto) 79.7 H Lymph % (Auto) 15.3 L [place] % (Auto) 4.9 Eos % (Auto) 0.0 Baso % (Auto) 0.1 Neut # (Auto) 9.5 H Lymph # (Auto) 1.8 [place] # (Auto) 0.6 Eos # (Auto) 0.0 Baso # (Auto) 0.0 Sodium 138 Potassium 3.8 Chloride 103 Carbon Dioxide 22 Anion Gap 17 BUN 5 L Creatinine 0.5 L Est GFR ( Amer) > 60 Est GFR (Non-Af Amer) > 60 Random Glucose 82 Calcium 8.2 L Total Bilirubin 0.7 AST 43 H D ALT 23 Alkaline Phosphatase 47 Total Protein 6.3 Albumin 3.0 L Globulin 3.2 Albumin/Globulin Ratio 0.9 L Assessment & Plan - Assessment and Plan (Free Text) Plan: OB Hosptialist note: late entry for Aug 25 12pm...pt seen and case rev'd. She is on-call to OR for appendectomy. Case discussed with anesthesia and general surgery. check FH with doppler after surgery. Follow up OB in 1-2w as scheduled as outpt - Date & Time Date: 08/25/17 Time: 12:00
--- NOTE | 2017-08-25 12:42 | MRI ---
PROCEDURE: MRI Abdomen without contrast HISTORY: Right lower quadrant pain and tenderness COMPARISON: None available. TECHNIQUE: Multisequence, multiplanar MR images of the abdomen. FINDINGS: LIVER: Unremarkable. GALLBLADDER: Unremarkable. SPLEEN: Unremarkable. PANCREAS: Unremarkable. ADRENALS: Unremarkable. KIDNEYS: Unremarkable. AORTA: No aneurysm. ASCITES: Trace right lower quadrant free fluid. PERITONEUM: Unremarkable. LYMPH NODES: Unremarkable. OTHER FINDINGS: Cecal wall thickening/ edema. Dilated appendix up to 1.2 cm with wall thickening/edema (series 3, image 17). Single intrauterine gestation. IMPRESSION: Acute appendicitis. Findings conveyed to the surgical team immediately after the additional FIESTA sequences were obtained.
[2017-08-25] MEDS ORDERED: Bupivacaine 0.5% Inj(30mL) ONE (13:13)
[2017-08-25] MEDS ORDERED: Lidocaine 1% Inj (20ml) ONE (13:13)
[2017-08-25] MEDS ORDERED: DiphenhydrAMINE 50 mg/ml Inj ONE (13:51)
[2017-08-25] MEDS ORDERED: Rocuronium 10 mg/ml (5 ml) ONE (13:59)
[2017-08-25] MEDS ORDERED: Succinylcholine 200 mg/10 ml Inj IV ONE (13:59)
[2017-08-25] MEDS ORDERED: Propofol 10 mg/ml Inj (20 ML) ONE (13:59)
[2017-08-25] MEDS ORDERED: Phenylephrine 10 mg/ml Inj ONE (14:09)
[2017-08-25] MEDS ORDERED: Lactated Ringer's 1,000 ML IV ONE ×2 (14:20)
[2017-08-25] MEDS ORDERED: Bupivacaine 0.5% 50 ML IJ ONE ×3 (14:46)
[2017-08-25] MEDS ORDERED: Lidocaine 1% Inj (20ml) IJ ONE ×3 (14:46)
[2017-08-25] MEDS ORDERED: Lactated Ringer's 500 ML IV ONE (15:00)
[2017-08-25] MEDS ORDERED: Bupivacaine HCl 0.25% PF (30 ml) Inj ONE (15:19)
[2017-08-25] MEDS ORDERED: Atropine 0.4 mg/ml Inj (1 mL) ONE ×2 (15:42→15:44)
--- NOTE | 2017-08-25 16:01 | PCM.SURG1 ---
Surgeon's Initial Post Op Note - Surgeon's Notes Surgeon: Dr. Hoffman Patient Access Manager: Lg Kimble PGY1 Type of Anesthesia: General Endo Anesthesia Administered By: Dr. Estrella Pre-Operative Diagnosis: Acute Appendicitis Operative Findings: Acute Appendicitis Post-Operative Diagnosis: Acute Appendicitis Operation Performed: Laparoscopic Appendectomy Specimen/Specimens Removed: Appendix Estimated Blood Loss: EBL {In ML}: 10 Blood Products Given: N/A Drains Used: No Drains Post-Op Condition: Good Date of Surgery/Procedure: 08/25/17 Time of Surgery/Procedure: 02:30
[2017-08-25] MEDS: HYDROmorphone 0.5 mg/0.5 ml ISec IVP PRN ×2 (16:16→16:26)
[2017-08-25] MEDS: Lactated Ringer's 1,000 ML IV SCH (17:01)
[2017-08-26] MEDS: Sodium Chloride 0.9% 1,000 ML IV SCH (03:56)
[2017-08-26] MEDS: Lactated Ringer's 1,000 ML IV SCH (03:56)
[2017-08-26] MEDS ORDERED: HYDROmorphone 0.5 mg/0.5 ml ISec IVP ONE (05:19)
[2017-08-26 06:56] LABS: BASO % 0.1 % (0.0-2.0); HEMOGLOBIN 11.8 g/dL (12.0-16.0); LYMPH # 1.8 K/uL (1.0-4.3); LYMPH % 15.3 % (20.0-40.0); MEAN CELL VOLUME 80.7 fl (81.0-99.0); MEAN CORPUSCULAR HEMOGLOBIN 27.4 pg (27.0-31.0); MEAN CORPUSCULAR HGB CONC 33.9 g/dL (33.0-37.0); MEAN PLATELET VOLUME 9.6 fl (7.2-11.7); MONO # 0.6 K/uL (0.0-0.8); MONO % 4.9 % (0.0-10.0); NEUT # 9.5 K/uL (1.8-7.0); NEUT % 79.7 % (50.0-75.0); NRBC % 0.1 % (0.0-0.0); RBC 4.33 Mil/uL (3.80-5.20); RED CELL DISTRIBUTION WIDTH 13.7 % (11.5-14.5); WHITE BLOOD COUNT 11.9 K/uL (4.8-10.8)
[2017-08-26 07:02] LABS: ALB/GLOB RATIO 0.9 (1.0-2.1); ALT/SGPT 23 U/L (9-52); AST/SGOT 43 U/L (14-36); BLOOD UREA NITROGEN 5 mg/dl (7-17); CALCIUM 8.2 mg/dL (8.4-10.2); GFR AFRICAN-AMERICAN > 60; GFR NON-AFRICAN AMERICAN > 60
--- NOTE | 2017-08-26 08:07 | CP.PCM.PN ---
Subjective - Date & Time of Evaluation Date of Evaluation: 08/26/17 Time of Evaluation: 08:04 - Subjective Subjective: pt admitted for appendicits initially under hospitalist then transfered to s/o dr salazar. at presen ti s s/p lap appy. no pain at present. nof/c, n/v/d. had period of hpotension but appers to be normalizing. pt is 16 wks and ob notes are reviewed. pt wishing for heart tones/us prior to dc. julian po.has appetite Objective - Vital Signs/Intake and Output Vital Signs (last 24 hours): Temp Pulse Resp BP Pulse Ox 97.3 F L 61 20 140/82 96 08/26/17 07:45 08/26/17 07:45 08/26/17 07:45 08/26/17 07:45 08/26/17 07:45 - Medications Medications: Current Medications Acetaminophen (Tylenol 325mg Tab) 650 mg PO Q6 PRN PRN Reason: Pain, severe (8-10) Last Admin: 08/26/17 04:36 Dose: 650 mg Ampicillin Sodium/Sulbactam (Sodium 3 gm/ Sodium Chloride) 100 mls @ 100 mls/ hr IVPB Q6 CHRISTEL PRN Reason: Protocol Last Admin: 08/26/17 04:01 Dose: 100 mls/hr Lactated Ringer's (Lactated Ringer's) 1,000 mls @ 100 mls/hr IV .Q10H CHRISTEL Last Admin: 08/26/17 03:56 Dose: Not Given - Labs Labs: 08/26/17 05:45 08/26/17 05:45 - Constitutional Appears: Well, Non-toxic, No Acute Distress - Head Exam Head Exam: ATRAUMATIC, NORMAL INSPECTION, NORMOCEPHALIC - Eye Exam Eye Exam: EOMI, Normal appearance, PERRL Pupil Exam: NORMAL ACCOMODATION, PERRL - ENT Exam ENT Exam: Mucous Membranes Moist, Normal Exam - Neck Exam Neck Exam: Full ROM, Normal Inspection. absent: Lymphadenopathy - Respiratory Exam Respiratory Exam: Clear to Ausculation Bilateral, NORMAL BREATHING PATTERN - Cardiovascular Exam Cardiovascular Exam: REGULAR RHYTHM, RRR, +S1, +S2. absent: Murmur - GI/Abdominal Exam GI & Abdominal Exam: Soft, Normal Bowel Sounds. absent: Tenderness - Extremities Exam Extremities Exam: Full ROM, Normal Capillary Refill, Normal Inspection. absent : Joint Swelling, Pedal Edema - Back Exam Back Exam: NORMAL INSPECTION - Neurological Exam Neurological Exam: Alert, Awake, CN II-XII Intact, Normal Gait, Oriented x3 - Psychiatric Exam Psychiatric exam: Normal Affect, Normal Mood - Skin Skin Exam: Dry, Intact, Normal Color, Warm Assessment and Plan (1) Appendicitis Assessment & Plan: pod 1 , unasyn pain control monitor vs bw noted adv diet per tolerance and surgery surgical f/u Status: Acute (2) DVT prophylaxis Assessment & Plan: scd and ae hose ambulation Status: Acute (3) 16 weeks gestation of Assessment & Plan: ob on test case developer FHT Status: Acute
--- NOTE | 2017-08-26 10:12 | CP.PCM.PN ---
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 Pt is 16 weeks . Pt reports doing well, pain is well controlled with medications. Pt felt baby moving last night. Pt denies vaginal bleeding, leakage of fluids or contractions. -- heart by portable Doppler was 144-146 within normal limits. Objective - Vital Signs/Intake and Output Vital Signs (last 24 hours): Temp Pulse Resp BP Pulse Ox 98.2 F 67 20 94/55 L 96 08/26/17 07:45 08/26/17 07:45 08/26/17 07:45 08/26/17 07:45 08/26/17 07:45 - Medications Medications: Current Medications Acetaminophen (Tylenol 325mg Tab) 650 mg PO Q6 PRN PRN Reason: Pain, severe (8-10) Last Admin: 08/26/17 09:43 Dose: 650 mg Ampicillin Sodium/Sulbactam (Sodium 3 gm/ Sodium Chloride) 100 mls @ 100 mls/ hr IVPB Q6 CHRISTEL PRN Reason: Protocol Last Admin: 08/26/17 08:59 Dose: 100 mls/hr Lactated Ringer's (Lactated Ringer's) 1,000 mls @ 100 mls/hr IV .Q10H CHRISTEL Last Admin: 08/26/17 03:56 Dose: Not Given - Labs Labs: 08/26/17 05:45 08/26/17 05:45 - Constitutional Appears: Well, No Acute Distress - Head Exam Head Exam: NORMAL INSPECTION - Eye Exam Eye Exam: EOMI, Normal appearance - ENT Exam ENT Exam: Mucous Membranes Moist - Neck Exam Neck Exam: Full ROM, Normal Inspection - Respiratory Exam Respiratory Exam: NORMAL BREATHING PATTERN - Cardiovascular Exam Cardiovascular Exam: REGULAR RHYTHM - GI/Abdominal Exam GI & Abdominal Exam: Soft, Tenderness (mild diffusely. ), Normal Bowel Sounds Additional comments: Uterine fundus palpated on supra-pubic area. heart beat appreciated with portable doppler, FHR ~ 144-146. - Neurological Exam Neurological Exam: Alert, Oriented x3 Assessment and Plan - Assessment and Plan (Free Text) Assessment: 31 y/o F at 16 weeks GA, with RLQ abdominal pain, unremarkable previous MOLDED GOODS CONTROLS OPERATOR Hx, No distress detected. OB Sonogram unremarkable. S/P Appendectomy. --OB Ultrasound was WNL yesterday 08/25/17. -- heart by Doppler 146-within normal limits. Yesterday 08/25/17 and today 08/26/17. --F/U outpatient with Dr Gomez, [facility], for Pre-Lamar Care within 1 week. --Pre-Lamar Vitamins reinforced. --Pt is stable, tolerating PO, afebrile, ambulating, not compromised with NO further MOLDED GOODS CONTROLS OPERATOR recommendations. --MOLDED GOODS CONTROLS OPERATOR signs off from case. Case discussed with Dr Bender, OB regasification plant operator. Alana PGY-1. <Sergio Bender - Last Filed: 08/26/17 12:20> Objective - Vital Signs/Intake and Output Vital Signs (last 24 hours): Temp Pulse Resp BP Pulse Ox 98.2 F 67 20 94/55 L 96 08/26/17 07:45 08/26/17 07:45 08/26/17 07:45 08/26/17 07:45 08/26/17 07:45 - Medications Medications: Current Medications Acetaminophen (Tylenol 325mg Tab) 650 mg PO Q6 PRN PRN Reason: Pain, severe (8-10) Last Admin: 08/26/17 09:43 Dose: 650 mg Ampicillin Sodium/Sulbactam (Sodium 3 gm/ Sodium Chloride) 100 mls @ 100 mls/ hr IVPB Q6 CHRISTEL PRN Reason: Protocol Last Admin: 08/26/17 08:59 Dose: 100 mls/hr Lactated Ringer's (Lactated Ringer's) 1,000 mls @ 100 mls/hr IV .Q10H CHRISTEL Last Admin: 08/26/17 03:56 Dose: Not Given - Labs Labs: 08/26/17 05:45 08/26/17 05:45 Assessment and Plan - Assessment and Plan (Free Text) Assessment: Patient to follow up with Dr Gomez for care
--- NOTE | 2017-08-26 12:29 | CP.PCM.PN ---
<Nanette Gasca - Last Filed: 08/26/17 12:26> Subjective - Date & Time of Evaluation Date of Evaluation: 08/26/17 Time of Evaluation: 12:26 - Subjective Subjective: General Surgery Progress Note for Dr. Hoffman Patient was seen and evaluated at bedside this morning. Patient is AAOx3 and is in NAD. Reports that she passed gas and has had one small bowel movement. Denies of any pain today. Reports that she is ready to go home now. Denies of any acute overnight events. Denies of any F/N/V/C/SOB/CP/headache. Objective - Vital Signs/Intake and Output Vital Signs (last 24 hours): Temp Pulse Resp BP Pulse Ox 98.2 F 67 20 94/55 L 96 08/26/17 07:45 08/26/17 07:45 08/26/17 07:45 08/26/17 07:45 08/26/17 07:45 - Medications Medications: Current Medications Acetaminophen (Tylenol 325mg Tab) 650 mg PO Q6 PRN PRN Reason: Pain, severe (8-10) Last Admin: 08/26/17 09:43 Dose: 650 mg Ampicillin Sodium/Sulbactam (Sodium 3 gm/ Sodium Chloride) 100 mls @ 100 mls/ hr IVPB Q6 CHRISTEL PRN Reason: Protocol Last Admin: 08/26/17 08:59 Dose: 100 mls/hr Lactated Ringer's (Lactated Ringer's) 1,000 mls @ 100 mls/hr IV .Q10H CHRISTEL Last Admin: 08/26/17 03:56 Dose: Not Given - Labs Labs: 08/26/17 05:45 08/26/17 05:45 - Constitutional Appears: Well, Non-toxic, No Acute Distress - Respiratory Exam Respiratory Exam: NORMAL BREATHING PATTERN - GI/Abdominal Exam GI & Abdominal Exam: Soft. absent: Rigid, Hernia, Mass - Extremities Exam Extremities Exam: Normal Inspection - Neurological Exam Neurological Exam: Alert, Awake - Psychiatric Exam Psychiatric exam: Normal Affect, Normal Mood Assessment and Plan - Assessment and Plan (Free Text) Assessment: 31F with abdominal pain s/p appendectomy POD1 Plan: Stable Continue current treatment Plan to discharge patient today with Augmentin 500 mg BID x 5 days No discharge until US completed by primary and until seen by Dr. Marrero <Pavan Hoffman - Last Filed: 08/26/17 19:44> Objective - Vital Signs/Intake and Output Vital Signs (last 24 hours): Temp Pulse Resp BP Pulse Ox 98.4 F 78 18 104/66 95 08/26/17 15:44 08/26/17 15:44 08/26/17 15:44 08/26/17 15:44 08/26/17 15:44 - Labs Labs: 08/26/17 05:45 08/26/17 05:45 Attending/Attestation - Attestation I have personally seen and examined this patient.: Yes I have fully participated in the care of the patient.: Yes I have reviewed all pertinent clinical information, including history, physical exam and plan: Yes Notes (Text): Pt was seen and examined at bedside Agree with above note and assessment Pt is feeling better and wants to go home today. c/o mild abdominal pain Pt had one bowel movement and tolerating diet Obstetric US is suggestive of Normal . No abnormality detected Pt can be DC home with PO augmentin for 5 days Po analgesics prn as c.w current mx f/u as out pt Local wound care Plan d.w pt in detail Risk and benefit explained in detail.
--- NOTE | 2017-08-26 13:52 | OP ---
PROCEDURE DATE: 08/25/2017 PREOPERATIVE DIAGNOSES: 1. Acute appendicitis. 2. Intrauterine 16 weeks. POSTOPERATIVE DIAGNOSES: 1. Acute appendicitis. 2. Intrauterine 16 weeks. PROCEDURE DONE: Laparoscopic appendectomy. SURGEON: The procedure was done by Pavan escobedo MD TYPE OF ANESTHESIA: General endotracheal tube anesthesia. ESTIMATED BLOOD LOSS: Around 10 mL. DRAIN: None. PATHOLOGY: Appendix was sent for the pathology. COMPLICATIONS: None. INTRAOPERATIVE FINDINGS: The patient had 16 weeks' gravid uterus, and the patient had acute appendicitis and the appedix and cecum was post up to the right flank. DESCRIPTION OF PROCEDURE: On intraoperative step, this is a 31-year-old female who was diagnosed with acute appendicitis during mid-term of and the patient had MRI that was suggestive of acute appendicitis and the patient was consented for laparoscopic appendectomy. The preoperative monitoring was done and the heart rate was in the 150s and the patient was explained in detail about the risks and benefits of appendectomy, laparoscopic as well as open. The patient was also explained about potential complications and also was explained about postoperative care. The patient was consented and brought to the OR and placed supine on the operating room table. After induction of the anesthesia, abdomen was prepped and draped in the usual sterile fashion and a supraumbilical transverse incision was made after incising the skin, subcutaneous tissue and the fascia. The Rosi port was placed, a very low pressure pneumo was created with 7 mm pressure and 20 flow and 5 mm port was placed in the infraumbilical region and another 12 mm was placed in the right upper quadrant and the appendix was utilized. Mesoappendix was resected with the Harmonic scalpel and base of the appendix was resected with KASSANDRA. There was a proper hemostasis was achieved and there was no collection and there was no apparent bleeding. The appendix was taken in an EndoCatch bag, taken out through the umbilical port side and sent available for the pathology. There was a proper hemostasis in each and every part of the procedure. All the port was taken out under vision. Pneumo was deflated. The umbilical port site was closed in 2 layer fascia of the 0 Vicryl interrupted sutures, skin with 4-0 Monocryl and dry sterile dressing was applied. The patient tolerated the procedure well. Count of the instrument and gauze was correct. There was no apparent complication. The patient was extubated in the OR and sent to the Postanesthesia Care Unit in stable condition. The postoperative monitoring was done and the heart rate was in 150 and as per the GENERAL ADJUSTER recommendation, the patient was managed and the patient tolerated whole process very well. Pavan Hoffman MD MTDD
--- NOTE | 2017-08-26 14:44 | US ---
PROCEDURE: OB Pelvic Ultrasound HISTORY: 16 WK , S/P APPENDICITIS LMP: 04/23/2017 COMPARISON: None available. FINDINGS: UTERUS: Single intrauterine gestation whose biometric parameters correspond to a fetus of 16 weeks 5 days 1 week 1 day gestation. The clinical dates are 17 weeks 6 days. Heart rate: 143 bpm. age (Ultrasound estimated): 16 weeks 5 days 1 week 1 day Sophie-gestational hemorrhage: None. Date of delivery (Ultrasound estimated) : 02/05/2018 No uterine masses seen. Placenta is posterior and is believe to greater than 2 cm from the cervix. presentation is transverse. . CERVIX: Measures 5.5 cm. Long and closed. No cervical abnormality seen. RIGHT OVARY: Not visualized LEFT OVARY: Not visualized FREE FLUID: None. OTHER FINDINGS: None. IMPRESSION: Single intrauterine gestation with normal cardiac activity whose menstrual age by ultrasound is 16 weeks 5 days 1 week 1 day. The clinical dates are 17 weeks 6 days. Posterior placenta. No previa. Transverse presentation.
[2017-08-26 15:44] VITALS: BP 104/66; PULSE 78; RESP 18; TEMP 98.4; O2SAT 95
--- NOTE | 2017-08-27 12:50 | CP.PCM.DIS ---
Provider - Provider Date of Admission: 08/25/17 13:46 Attending physician: Vamsi Quinn MD Time Spent in preparation of Discharge (in minutes): 15 Diagnosis - Discharge Diagnosis (1) Appendicitis Status: Acute (2) DVT prophylaxis Status: Acute (3) 16 weeks gestation of Status: Acute Hospital Course - Lab Results Lab Results: Micro Results 08/24/17 20:08 Urine Urine Culture - Final Beta Hemolytic Strep Group B Most Recent Lab Values WBC 11.9 K/uL (4.8-10.8) H 08/26/17 05:45 RBC 4.33 Mil/uL (3.80-5.20) 08/26/17 05:45 Hgb 11.8 g/dL (12.0-16.0) L 08/26/17 05:45 Hct 34.9 % (34.0-47.0) 08/26/17 05:45 MCV 80.7 fl (81.0-99.0) L 08/26/17 05:45 MCH 27.4 pg (27.0-31.0) 08/26/17 05:45 MCHC 33.9 g/dL (33.0-37.0) 08/26/17 05:45 RDW 13.7 % (11.5-14.5) 08/26/17 05:45 Plt Count 176 K/uL (130-400) 08/26/17 05:45 MPV 9.6 fl (7.2-11.7) 08/26/17 05:45 Neut % (Auto) 79.7 % (50.0-75.0) H 08/26/17 05:45 Lymph % (Auto) 15.3 % (20.0-40.0) L 08/26/17 05:45 [place] % (Auto) 4.9 % (0.0-10.0) 08/26/17 05:45 Eos % (Auto) 0.0 % (0.0-4.0) 08/26/17 05:45 Baso % (Auto) 0.1 % (0.0-2.0) 08/26/17 05:45 Neut # (Auto) 9.5 K/uL (1.8-7.0) H 08/26/17 05:45 Lymph # (Auto) 1.8 K/uL (1.0-4.3) 08/26/17 05:45 [place] # (Auto) 0.6 K/uL (0.0-0.8) 08/26/17 05:45 Eos # (Auto) 0.0 K/uL (0.0-0.7) 08/26/17 05:45 Baso # (Auto) 0.0 K/uL (0.0-0.2) 08/26/17 05:45 Sodium 138 mmol/l (132-148) 08/26/17 05:45 Potassium 3.8 MMOL/L (3.6-5.0) 08/26/17 05:45 Chloride 103 mmol/L (98-107) 08/26/17 05:45 Carbon Dioxide 22 mmol/L (22-30) 08/26/17 05:45 Anion Gap 17 (10-20) 08/26/17 05:45 BUN 5 mg/dl (7-17) L 08/26/17 05:45 Creatinine 0.5 mg/dl (0.7-1.2) L 08/26/17 05:45 Est GFR ( Amer) > 60 08/26/17 05:45 Est GFR (Non-Af Amer) > 60 08/26/17 05:45 Random Glucose 82 mg/dL (65-105) 08/26/17 05:45 Calcium 8.2 mg/dL (8.4-10.2) L 08/26/17 05:45 Total Bilirubin 0.7 mg/dl (0.2-1.3) 08/26/17 05:45 AST 43 U/L (14-36) H D 08/26/17 05:45 ALT 23 U/L (9-52) 08/26/17 05:45 Alkaline Phosphatase 47 U/L (38-126) 08/26/17 05:45 Total Protein 6.3 G/DL (6.3-8.2) 08/26/17 05:45 Albumin 3.0 g/dL (3.5-5.0) L 08/26/17 05:45 Globulin 3.2 gm/dL (2.2-3.9) 08/26/17 05:45 Albumin/Globulin Ratio 0.9 (1.0-2.1) L 08/26/17 05:45 Amylase 64 U/L (30-110) 08/24/17 20:17 Lipase 66 U/L (23-300) 08/24/17 20:17 Urine Color Yellow (YELLOW) 08/24/17 20:08 Urine Clarity Cloudy (Clear) 08/24/17 20:08 Urine pH 6.0 (5.0-8.0) 08/24/17 20:08 Ur Specific [place] 1.021 (1.003-1.030) 08/24/17 20:08 Urine Protein Negative mg/dL (NEGATIVE) 08/24/17 20:08 Urine Glucose (UA) Neg mg/dL (Normal) 08/24/17 20:08 Urine Ketones Negative mg/dL (NEGATIVE) 08/24/17 20:08 Urine Blood Negative (NEGATIVE) 08/24/17 20:08 Urine Nitrate Negative (NEGATIVE) 08/24/17 20:08 Urine Bilirubin Negative (NEGATIVE) 08/24/17 20:08 Urine Urobilinogen 0.2-1.0 mg/dL (0.2-1.0) 08/24/17 20:08 Ur Leukocyte Esterase Neg Saul/uL (Negative) 08/24/17 20:08 Urine RBC (Auto) 2 /hpf (0-3) 08/24/17 20:08 Urine Microscopic WBC 1 /hpf (0-5) 08/24/17 20:08 Ur Squamous Epith Cells 12 /hpf (0-5) H 08/24/17 20:08 Urine Bacteria Rare (<OCC) 08/24/17 20:08 Blood Type AB POSITIVE 08/25/17 00:59 Antibody Screen Negative 08/25/17 00:59 BBK History Checked Patient has bt 08/25/17 00:59 - Hospital Course Hospital Course: mri, pain control surgery, ob ob us lap appy Discharge Exam - Head Exam Head Exam: NORMAL INSPECTION Discharge Plan - Follow Up Plan Condition: STABLE Disposition: HOME/ ROUTINE Instructions: Appendicitis, Adult (DC), Amoxicillin and Clavulanate, Oxycodone and Acetaminophen, Appendectomy, Laparoscopic Surgery (DC), - The Fourth Month Additional Instructions: follow up with your primary MD and surgeon 7-10 days. final dx- acute AP urine c/s noted. pt dc on augmentin. f/u pmd, ob, surgery as directed. rted prn, meds per med rec cleared for dc by surgery Referrals: Cam Saenz DO [Staff Provider] - Pavan Hoffman MD [Staff Provider] - Eulalio Feng, MARNIE, PHARMACEUTICAL DEVELOPMENT TECHNICIAN [Advanced Practice Nurse] -
== END 2017-08-26 16:15 | disposition home or self-care (01) | DRG 885 ==
LOC: H.ER 19:08 → H.ERHOLD 23:05 → H.MEDSURG1 08-25 03:39 → OBSVTOIN 08-25 13:46
PROVIDERS: ADMIT Family Medicine; ATTEND Family Medicine
PROC: 0DTJ4ZZ Resection of Appendix, Percutaneous Endoscopic Approach (ICD-10-PCS; principal; 2017-08-25 14:00)
DX: O99.612 Diseases of the digestive system complicating pregnancy, second trimester (principal); K35.80 Unspecified acute appendicitis; Z3A.16 16 weeks gestation of pregnancy; Z91.041 Radiographic dye allergy status; D72.829 Elevated white blood cell count, unspecified

== ENCOUNTER 2017-08-31 17:58 | Emergency (ER) | payer MEDICAID ==
[2017-08-31 18:11] VITALS: BP 115/70; PULSE 109; RESP 16; TEMP 97.8; O2SAT 99
[2017-08-31] MEDS ORDERED: Sodium Chloride 0.9% 1,000 ML IV STA (19:34)
--- NOTE | 2017-08-31 19:41 | ED PDOC ---
HPI: Abdomen Time Seen by Provider: 08/31/17 19:22 Chief Complaint (Nursing): Abdominal Pain Chief Complaint (Provider): abdominal pain History Per: Patient History/Exam Limitations: no limitations Onset/Duration Of Symptoms: Days (3x) Current Symptoms Are (Timing): Still Present Location Of Pain/Discomfort: Other (lower) Quality Of Discomfort: "Pain" Associated Symptoms: denies: Fever, Nausea, Vomiting, Other (vaginal bleeding) Additional Complaint(s): 31 year old female who is 17 weeks presents to the ED complaining of lower abdominal pain. Reports she took Tylenol without any relief. States she had an appendectomy on 08/25/17. Denies fever, nausea, vomiting or vaginal bleeding. : 2 Para: 1 at 17 weeks s/p: Appendectomy 08/25/17 PMD: Rom Hoffman Past Medical History Reviewed: Historical Data, Nursing Documentation, Vital Signs Vital Signs: Last Vital Signs Temp 97.8 F 08/31/17 18:09 Pulse 109 H 08/31/17 18:09 Resp 16 08/31/17 18:09 BP 115/70 08/31/17 18:09 Pulse Ox 99 08/31/17 23:20 - Medical History PMH: No Chronic Diseases Denies: Chronic Kidney Disease - Surgical History Surgical History: Appendectomy (08/25/17) - Family History Family History: States: Unknown Family Hx - Home Medications Home Medications: Ambulatory Orders Medication Instructions Recorded No Known Home Med 08/24/17 - Allergies Allergies/Adverse Reactions: Allergies Allergy/AdvReac Type Severity Reaction Status Date / Time iodine Allergy RASH Verified 08/31/17 18:08 Review of Systems ROS Statement: Except As Marked, All Systems Reviewed And Found Negative Constitutional: Negative for: Fever Gastrointestinal: Positive for: Abdominal Pain (lower). Negative for: Nausea, Vomiting Genitourinary Female: Negative for: Vaginal Bleeding Physical Exam - Reviewed Nursing Documentation Reviewed: Yes Vital Signs Reviewed: Yes - Physical Exam Appears: Positive for: Well, Non-toxic, No Acute Distress Head Exam: Positive for: ATRAUMATIC, NORMAL INSPECTION, NORMOCEPHALIC Skin: Positive for: Normal Color, Warm, Dry Eye Exam: Positive for: EOMI, Normal appearance, PERRL ENT: Positive for: Normal ENT Inspection Neck: Positive for: Normal, Painless ROM, Supple. Negative for: Decreased ROM Cardiovascular/Chest: Positive for: Regular Rate, Rhythm. Negative for: Murmur Respiratory: Positive for: Normal Breath Sounds. Negative for: Decreased Breath Sounds, Accessory Muscle Use, Respiratory Distress Gastrointestinal/Abdominal: Positive for: Tenderness (suprapubic; mild lower- bilateral), Other (laparoscopic incisions) Back: Positive for: Normal Inspection. Negative for: L CVA Tenderness, R CVA Tenderness Extremity: Positive for: Normal ROM. Negative for: Tenderness, Pedal Edema, Deformity Neurologic/Psych: Positive for: Alert, Oriented (x3), Gait (steady) - Laboratory Results Result Diagrams: 08/31/17 19:52 08/31/17 19:52 - ECG O2 Sat by Pulse Oximetry: 99 (RA) Pulse Ox Interpretation: Normal Medical Decision Making Medical Decision Making: Time: 19:33 Initial Impression: Lower Abdominal Pain, Status-post Appendectomy, Decreased Movement Initial Plan: --CMP --ED Urine dipstick --CBC w/ differential --Normal Saline 1,000mls/hr --Urinalysis --OB , Limited [US] --Reevaluation Accession No. : [id number] Patient Name / ID : AKHIL SANTOS / [id number] Exam Date : 08/31/2017 20:45:44 ( Approved ) Study Comment : Sex / Age : F / 31Y Creator : OLYA BILLINGS Dictator : [employer] Worker : Case Resolution Specialist : OLYA BILLINGS Approver2 : Report Date : 08/31/2017 22:58:00 My Comment : [facility] Division of Radiology [address] [place] [address] Tel. no. Patient Name: TOM LANDAVERDE Pt. Address: [address] [place] [address]. Rec #: [id number] [place] [address]: Maikol RAIN,Kym Galvez Pt CELL Order Location: [facility] : 1985 Female Age: 31 Order #: [id number] Reason for exam: Decreased movement, lower abd pain Ultrasound OB , LIMITED Exam Date: 08/31/17 This imaging exam was performed at [facility] EXAM: US After First Trimester, Transabdominal EXAM DATE/TIME: 08/31/2017 7:33 PM CLINICAL HISTORY: 31 years old, female; Pain; complicated by abdominal or pelvic pain; Lower; Second trimester; Gestational age or lmp: 04/23/2017; ; Additional info: Decreased movement, lower abd pain TECHNIQUE: Real-time transabdominal obstetrical ultrasound of the maternal pelvis and a second or third trimester with image documentation. COMPARISON: US - OB , LIMITED 2017-08-24 20:22 FINDINGS: Fetus: There is a single living intrauterine gestation in breech presentation. There is a heart rate of 146 beats per minute. motion was seen in real-time. Placenta: Placenta is posterior. There is no previa. Amniotic fluid: Amniotic fluid volume appears normal. Anatomy: Early gestational age limits evaluation of anatomy. BIOMETRICS Gestational age by US: 17 weeks 2 days EFW: 193 g BPD: 3.6 by cm, 17 weeks 1 day HC: 13.49 cm, 17 weeks 0 days AC: 11.78 cm 17 weeks 4 days FL: 2.46 cm, 17 weeks 3 days MATERNAL: Cervix: Cervix measures approximately 3.5 cm on transabdominal imaging IMPRESSION: 17 week 2 day single breech fetus, estimated date of delivery 02/06/18 Dictated By: Olya Billings MD, MD Dictated Date/Time: 08/31/172257 Signed By: Olya Billings MD Date Signed: 2257 Transcribed By: RAJESH Transcribe Date/Time : 08/31/172257 CHARMAINE/YEIMI 23:[address] Meier, residential building inspector, will discuss with Dr. Marerro. Pt wants to leave prior to residential building inspector evaluation, states she needs to leave, has appt with Dr. Marrero tomorrow @ 9 AM. Pt evaluated by residential building inspector, d/c home. Scribe Attestation: Documented by Elena Humphrey, acting as a scribe for Kym Harris MD Provider Scribe Attestation: All medical record entries made by the Scribe were at my direction and personally dictated by me. I have reviewed the chart and agree that the record accurately reflects my personal performance of the history, physical exam, medical decision making, and the department course for this patient. I have also personally directed, reviewed, and agree with the discharge instructions and disposition. Disposition - Clinical Impression Clinical Impression: Abdominal pain during - Patient ED Disposition Is Patient to be Admitted: No - Disposition Referrals: Jama Gomez MD [Staff Provider] - Pavan Hoffman MD [Staff Provider] - [facility] [Outside] Disposition: Routine/Home Disposition Time: 23:19 Condition: IMPROVED Additional Instructions: CONTINUE TYLENOL NEEDED FOR PAIN. Instructions: Acute Abdomen (Belly Pain) Forms: [email or web address] ([place])
[2017-08-31 20:02] LABS: BASO # 0.1 K/uL (0.0-0.2); BASO % 0.6 % (0.0-2.0); EOS # 0.2 K/uL (0.0-0.7); EOS % 1.4 % (0.0-4.0); LYMPH # 2.5 K/uL (1.0-4.3); LYMPH % 21.7 % (20.0-40.0); MEAN CELL VOLUME 81.9 fl (81.0-99.0); MEAN CORPUSCULAR HEMOGLOBIN 27.1 pg (27.0-31.0); MEAN CORPUSCULAR HGB CONC 33.1 g/dL (33.0-37.0); MEAN PLATELET VOLUME 9.4 fl (7.2-11.7); MONO # 0.7 K/uL (0.0-0.8); MONO % 5.9 % (0.0-10.0); NEUT % 70.4 % (50.0-75.0); NRBC % 0.6 % (0.0-0.0); RBC 4.42 Mil/uL (3.80-5.20); RED CELL DISTRIBUTION WIDTH 13.8 % (11.5-14.5); WHITE BLOOD COUNT 11.4 K/uL (4.8-10.8)
[2017-08-31 20:04] LABS: SQUAMOUS EPITHIAL 14 /hpf (0-5); URINE BACTERIA RARE (<OCC); URINE BILIRUBIN NEGATIVE (NEGATIVE); URINE BLOOD NEGATIVE (NEGATIVE); URINE CLARITY CLOUDY (Clear); URINE COLOR YELLOW (YELLOW); URINE GLUCOSE (UA) NEG (Normal); URINE LEUKOCYTE ESTERASE TRACE Leu/uL (Negative); URINE PROTEIN NEGATIVE (NEGATIVE); URINE UROBILINOGEN 0.2-1.0 mg/dL (0.2-1.0)
[2017-08-31 20:27] LABS: ALBUMIN 3.5 g/dL (3.5-5.0); ALT/SGPT 27 U/L (9-52); AST/SGOT 19 U/L (14-36); BLOOD UREA NITROGEN 11 mg/dl (7-17); CALCIUM 8.8 mg/dL (8.4-10.2); GFR AFRICAN-AMERICAN > 60; GFR NON-AFRICAN AMERICAN > 60
--- NOTE | 2017-08-31 22:58 | US ---
EXAM: US After First Trimester, Transabdominal EXAM DATE/TIME: 08/31/2017 7:33 PM CLINICAL HISTORY: 31 years old, female; Pain; complicated by abdominal or pelvic pain; Lower; Second trimester; Gestational age or lmp: 04/23/2017; ; Additional info: Decreased movement, lower abd pain TECHNIQUE: Real-time transabdominal obstetrical ultrasound of the maternal pelvis and a second or third trimester with image documentation. COMPARISON: US - OB , LIMITED 2017-08-24 20:22 FINDINGS: Fetus: There is a single living intrauterine gestation in breech presentation. There is a heart rate of 146 beats per minute. motion was seen in real-time. Placenta: Placenta is posterior. There is no previa. Amniotic fluid: Amniotic fluid volume appears normal. Anatomy: Early gestational age limits evaluation of anatomy. BIOMETRICS Gestational age by US: 17 weeks 2 days EFW: 193 g BPD: 3.6 by cm, 17 weeks 1 day HC: 13.49 cm, 17 weeks 0 days AC: 11.78 cm 17 weeks 4 days FL: 2.46 cm, 17 weeks 3 days MATERNAL: Cervix: Cervix measures approximately 3.5 cm on transabdominal imaging IMPRESSION: 17 week 2 day single breech fetus, estimated date of delivery 02/06/18
== END 2017-08-31 23:37 | disposition home or self-care (01) ==
LOC: H.ER 17:58
DX: O26.899 Other specified pregnancy related conditions, unspecified trimester (principal)
CPT/HCPCS: 76815; 80053; 81003; 81025; 85025; 96360; 99283; J7040

== ENCOUNTER 2017-12-18 19:19 | Emergency (ER) | payer MEDICAID ==
[2017-12-18 19:49] VITALS: BMI 29.7
[2017-12-18] MEDS: Lactated Ringer's 1,000 ML IV SCH ×2 (20:30→21:30)
[2017-12-18 20:43] LABS: BASO % 0.3 % (0.0-2.0); EOS # 0.1 K/uL (0.0-0.7); LYMPH # 2.3 K/uL (1.0-4.3); LYMPH % 20.8 % (20.0-40.0); MEAN CELL VOLUME 80.4 fl (81.0-99.0); MEAN CORPUSCULAR HEMOGLOBIN 26.8 pg (27.0-31.0); MEAN CORPUSCULAR HGB CONC 33.3 g/dL (33.0-37.0); MEAN PLATELET VOLUME 9.3 fl (7.2-11.7); MONO % 9.1 % (0.0-10.0); NEUT # 7.7 K/uL (1.8-7.0); NEUT % 68.8 % (50.0-75.0); RBC 4.09 Mil/uL (3.80-5.20); RED CELL DISTRIBUTION WIDTH 14.3 % (11.5-14.5); WHITE BLOOD COUNT 11.1 K/uL (4.8-10.8)
[2017-12-18 20:47] LABS: SQUAMOUS EPITHIAL 2 /hpf (0-5); URINE AMORPHOUS SEDIMENT RARE /ul (<OCC); URINE BACTERIA RARE (<OCC); URINE BILIRUBIN NEGATIVE (NEGATIVE); URINE BLOOD NEGATIVE (NEGATIVE); URINE CLARITY SLIGHTY-CLOUDY (Clear); URINE COLOR YELLOW (YELLOW); URINE GLUCOSE (UA) NEG (Normal); URINE LEUKOCYTE ESTERASE NEG Leu/uL (Negative); URINE PROTEIN NEGATIVE (NEGATIVE); URINE UROBILINOGEN 0.2-1.0 mg/dL (0.2-1.0)
[2017-12-18 21:01] LABS: ALB/GLOB RATIO 1.1 (1.0-2.1); ALBUMIN 3.3 g/dL (3.5-5.0); ALT/SGPT 17 U/L (9-52); AST/SGOT 20 U/L (14-36); BLOOD UREA NITROGEN 5 mg/dl (7-17); GFR AFRICAN-AMERICAN > 60; GFR NON-AFRICAN AMERICAN > 60
--- NOTE | 2017-12-19 00:17 | OBHP ---
Datetime: 12/18/2017 21:03 IP Adm Impression: , intrauterine IP Admit Plan: Observation/Evaluation Admit Comment, IP Provider: 32yo @ 32.6wks who presents to ed w/ c/o nausea, dizziness, weakn ess and Low BP. denies syncopal episode of loc. noted at home w/ self monitor of 99/55. she state s he has the monitor for her father who has htn. she denies srom, bleeding, cramps, ctxs or decreased f m. obhx: cdx1 pmhx: denies pshx: rt breast lumpecotmy 08/01; laparoscopic appy w/ current preg in 08/30. allergy: iodine pruritus medic: pnv shx: denies etoh, illicit drugs or tobacco I: 32.6wks w/ c/o episodes of low bp and malaise p: iv hydration ua, cbc, cmp addendum: labs wnl dr samuel notified- d/c home f/u in 3days, mon in office Pelvic Type - PN: Not Done Extremities - PN: Normal Abdomen - PN: Normal Back - PN: Normal Lungs - PN: Normal Heart - PN: Normal Neurologic - PN: Normal HEENT - PN: Normal General - PN: Normal FHR - Baseline A Provider: 130 Contraction Comments Provider: none EGA AdmitDate IP: 32.5 Vital Signs Provider: Reviewed; Within Normal Limits IP Chief Complaint: Other NICHD Variability Prov Fetus A: Moderate 6-25bpm NICHD Accel Fetus A IP Provider: 15X15 FHR Category Provider Fetus A: Category I NICHD Decel Fetus A IP Provider: None
[2017-12-19 06:28] VITALS: BP 116/77; PULSE 83; RESP 18; TEMP 97.8; O2SAT 100
== END 2017-12-18 22:55 | disposition home or self-care (01) ==
LOC: H.EROB2 19:19
DX: O26.93 Pregnancy related conditions, unspecified, third trimester (principal); R42 Dizziness and giddiness; R11.0 Nausea; Z3A.32 32 weeks gestation of pregnancy
CPT/HCPCS: 80053; 81003; 85025; 96360; 96361; 99283; J7120

== ENCOUNTER 2018-01-10 21:06 | Emergency (ER) | payer MEDICAID ==
[2018-01-10 21:47] VITALS: BMI 39.2
[2018-01-11 04:08] VITALS: BP 114/72; PULSE 85; RESP 18; TEMP 98.5
--- NOTE | 2018-01-11 09:07 | OBDCSUM ---
Datetime: 01/10/2018 22:07 Discharged to, Provider: Home Follow up at, Provider: DR IBANEZ Disch Instr Activity: Normal activity Disch Instr Diet: Regular Discharge Instructions, Provider: Routine instructions given Discharge Time: 01/10/2018 22:07 Follow up in weeks, Provider: CALL [facility] OFFICE TOMORROW FOR EARLY APPOINTMENT Disch Referrals: None Contraception discussed, Prov: Yes Disch Activity Restrictions: Nothing in vagina - [place], tampons, douche Discharge Diagnosis Prov Other: Decreased movement
--- NOTE | 2018-01-11 09:08 | OBHP ---
Datetime: 01/10/2018 22:15 IP Adm Impression: , intrauterine ; No Active Labor IP Admit Plan: Observation/Evaluation Admit Comment, IP Provider: Pt is a 32 yo 36wks gest QUEENIE 02/07/18 based on LMP of 05/03/18 an d her first U/S done in Jun. Patient states she noticed decreased movements today. Patient did not bring her records states they are up to date, she is Dr. Gomez patient at [facility]. D enies vaginal bleeding, contractions or LOF. Patient is scheduled for a C section on 02/02/18. Denies dizziness, headaches, blurry vision, SOB, CP, NVDC, or burning with urination. 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 PGY-1 Patient seen and case discussed with Dr. Garcia Addendum by Dr. Garcia: Patient seen and evaluated independently and I agree with the above Extremities - PN: Normal Abdomen - PN: Normal Lungs - PN: Normal Heart - PN: Normal Neurologic - PN: Normal HEENT - PN: Normal General - PN: Normal FHR - Baseline A Provider: 130-140's EGA AdmitDate IP: 36.0 Vital Signs Provider: Reviewed; Within Normal Limits IP Chief Complaint: Decreased movement NICHD Variability Prov Fetus A: Moderate 6-25bpm NICHD Accel Fetus A IP Provider: 15X15 FHR Category Provider Fetus A: Category I NICHD Decel Fetus A IP Provider: None
== END 2018-01-10 22:10 | disposition home or self-care (01) ==
LOC: H.EROB2 21:06
DX: O36.8131 Decreased fetal movements, third trimester, fetus 1 (principal); Z3A.36 36 weeks gestation of pregnancy

== ENCOUNTER 2018-01-13 16:07 | Emergency (ER) | payer MEDICAID ==
[2018-01-13] MEDS ORDERED: Betamethasone Soluspan 30 mg/5mL Inj Susp IM ONE (16:52)
--- NOTE | 2018-01-13 18:42 | OBHP ---
Datetime: 01/13/2018 18:33 IP Adm Impression: , intrauterine ; No Active Labor IP Chief Complaint Other: dec FLORIN today IP Admit Plan Other: steroids Admit Comment, IP Provider: pt seen at [facility] dept today and found with decreased FLORIN 4.9cm and perinat ologist suggested to give steroids and delivery pt seen in OB ED and NST done and reactive and steroi ds given She will go home with instructions and return in am for 2nd course of steroids and repeat NS T and will deliver after steroids kick in Discussed with pt and understands and agreed. Instructions given Extremities - PN: Normal Abdomen - PN: Abnormal Breast - PN: Normal Lungs - PN: Normal Heart - PN: Normal Thyroid - PN: Normal Neurologic - PN: Normal HEENT - PN: Normal General - PN: Normal FHR - Baseline A Provider: 150 Membranes, Provider: Intact Contraction Comments Provider: none Comments, ACOG Physical Exam: Abd gravid NT Gestation - Est Wks by US: 36 wks Pool Provider: Negative IP Hx Assessment: The History has been Reviewed and is Current EGA AdmitDate IP: 36.3 Vital Signs Provider: Reviewed IP Chief Complaint: Other NICHD Variability Prov Fetus A: Moderate 6-25bpm NICHD Accel Fetus A IP Provider: 10X10 NICHD Decel Fetus A IP Provider: None Genitourinary Exam: Normal DTRs - PN: Normal
[2018-01-13 23:21] VITALS: BP 124/82; PULSE 94; O2SAT 100
== END 2018-01-13 18:45 | disposition home or self-care (01) ==
LOC: H.EROB2 16:07
DX: O41.03 Oligohydramnios, third trimester (principal); Z23 Encounter for immunization; Z3A.36 36 weeks gestation of pregnancy
CPT/HCPCS: 96372; 99283; J0702

== ENCOUNTER 2018-01-14 07:53 | Emergency (ER) | payer MEDICAID ==
[2018-01-14] MEDS ORDERED: Betamethasone Soluspan 30 mg/5mL Inj Susp IM ONE (08:57)
--- NOTE | 2018-01-14 09:48 | OBHP ---
Datetime: 01/14/2018 09:39 IP Adm Impression: , intrauterine IP Chief Complaint Other: oligohydramnios/prev C/s IP Adm Impression Other: for steroids IP Admit Plan: Observation/Evaluation IP Admit Plan Other: sterioids Admit Comment, IP Provider: here for 2nd dose of steroids NST reactive will D/C home with specific i nstruction and to return at 6 am for repeat C/S in am Pt to stay in bed and pelvic rest Call immediat ly if pains ROM dec fm UC etc Understands and ageed. Extremities - PN: Normal Back - PN: Not Done Breast - PN: Not Done Lungs - PN: Normal Heart - PN: Normal Thyroid - PN: Normal Neurologic - PN: Normal HEENT - PN: Normal General - PN: Normal FHR - Baseline A Provider: 150 Membranes, Provider: Intact Comments, ACOG Physical Exam: Abd gravid NT Ext no calf tenderness Gestation - Est Wks by US: 36+ IP Hx Assessment: The History has been Reviewed and is Current EGA AdmitDate IP: 36.4 Vital Signs Provider: Reviewed IP Chief Complaint: Other NICHD Variability Prov Fetus A: Moderate 6-25bpm NICHD Accel Fetus A IP Provider: Prolonged NICHD Decel Fetus A IP Provider: None Dilatation, Provider: closed
== END 2018-01-14 10:30 | disposition home or self-care (01) ==
LOC: H.EROB2 07:53
DX: Z23 Encounter for immunization (principal); Z3A.36 36 weeks gestation of pregnancy
CPT/HCPCS: 96372; 99283; J0702

== ENCOUNTER 2018-01-15 05:59 | Inpatient (IN) | payer MEDICAID ==
[2018-01-15] MEDS ORDERED: cefOXitin 2 GM in Sodium Chloride 0.9% 100 ML IVPB ONE (06:32)
[2018-01-15] MEDS: Lactated Ringer's 1,000 ML IV ONE ×2 (06:52→07:30)
[2018-01-15 07:34] VITALS: RESP 20
[2018-01-15 07:36] LABS: BASO % 0.1 % (0.0-2.0); HEMOGLOBIN 10.2 g/dL (12.0-16.0); LYMPH # 1.8 K/uL (1.0-4.3); MEAN CELL VOLUME 78.8 fl (81.0-99.0); MEAN CORPUSCULAR HEMOGLOBIN 25.7 pg (27.0-31.0); MEAN CORPUSCULAR HGB CONC 32.6 g/dL (33.0-37.0); MEAN PLATELET VOLUME 9.7 fl (7.2-11.7); MONO # 1.4 K/uL (0.0-0.8); MONO % 9.3 % (0.0-10.0); NEUT # 11.6 K/uL (1.8-7.0); NEUT % 78.6 % (50.0-75.0); RBC 3.98 Mil/uL (3.80-5.20); RED CELL DISTRIBUTION WIDTH 14.8 % (11.5-14.5); WHITE BLOOD COUNT 14.8 K/uL (4.8-10.8)
--- NOTE | 2018-01-15 11:31 | OBADHP ---
Datetime: 01/15/2018 11:23 IP Chief Complaint Other: previous C/s; oligohydramnios/s/p steroid admistration IP Adm Impression Other: prev C/S oligohydramnios Admit Comment, IP Provider: for repeat C/S after found with oligohydramnios and given steroid therap y and advised from perinatologist for delivery Declined BTL at this time Extremities - PN: Normal Abdomen - PN: Abnormal Back - PN: Not Done Breast - PN: Not Done Lungs - PN: Normal Heart - PN: Normal Thyroid - PN: Normal Neurologic - PN: Normal HEENT - PN: Normal General - PN: Normal FHR - Baseline A Provider: 140 Membranes, Provider: Intact Contraction Comments Provider: irreg Comments, ACOG Physical Exam: Abd soft nd gravid fundus at term; ext no calf tenderness Gestation - Est Wks by US: 36+ IP Hx Assessment: The History has been Reviewed and is Current IP Chief Complaint: Other NICHD Variability Prov Fetus A: Moderate 6-25bpm NICHD Accel Fetus A IP Provider: 10X10 NICHD Decel Fetus A IP Provider: None Dilatation, Provider: closed Genitourinary Exam: Normal DTRs - PN: Normal EGA AdmitDate IP: 36.5 IP Adm Impression: , intrauterine IP Admit Plan: Admit to unit; Initiate Section protocol Datetime: 01/14/2018 09:39 IP Admit Plan Other: sterioids Vital Signs Provider: Reviewed Datetime: 01/13/2018 18:33 Pool Provider: Negative Datetime: 01/10/2018 22:15 FHR Category Provider Fetus A: Category I Datetime: 12/18/2017 21:03 Pelvic Type - PN: Not Done
[2018-01-15] MEDS ORDERED: ePHEDrine 50 mg/ml Inj ONE ×3 (12:09→12:48)
[2018-01-15] MEDS ORDERED: EPINEPHrine 1 mg/ml (1:1000) Inj ONE (12:09)
[2018-01-15] MEDS ORDERED: Morphine 1 mg/ml preservative-free Inj(Duramorph) ONE (12:09)
[2018-01-15] MEDS ORDERED: Lactated Ringer's 1,000 ML IV SCH (14:15)
[2018-01-15] MEDS: cefOXitin IV 1 gm in Dextrose 1 GM/50 ML BAG IVPB SCH (17:23)
--- NOTE | 2018-01-15 17:42 | OBDS ---
DELIVERY PERSONNEL Delivery Doctor: Aida Gomez MD Scrub Nurse: Aminata Samuels OBT Agency Service Coordinator: Adenike Myles RN/Lorin Bull Anesthesiologist: Dr. Otero MATERNAL INFORMATION Delivery Anesthesia: Spinal Medications in Delivery: pitocin 30 Estimated Blood Loss (ml): 800 Placenta Cultured: No Maternal Complications: None Provider Comments: see dictated surgeons note LABOR SUMMARY EDC: 02/07/2018 00:00 No. Babies in Womb: 1 Attempted: No Labor Anesthesia: None LABOR INFORMATION Reason for Induction: Not Applicable Oxytocin: N/A Group B Beta Strep: Positive Steroids Given: Full Course Reason Steroids Not Administered: Indication MEMBRANES Membranes Rupture Method: Artificial Rupture of Membranes: 01/15/2018 13:02 Length of Rupture (hrs): 0.00 Amniotic Fluid Color: Clear Amniotic Fluid Amount: Small Amniotic Fluid Odor: Normal STAGES OF LABOR Stage 3 hrs: 0 Stage 3 min: 1 VAGINAL DELIVERY Episiotomy: None Laceration Extension: N/A Laceration Type: None Laceration Repair: Not Applicable Sponge Count Correct: Yes Sharps Count Correct: Yes Count Comment: count correct x3 CSECTION DELIVERY Primary Indication: Repeat Elective Other Primary Indication: oligohydramnious Secondary Indication: Repeat Elective Other Secondary Indication: prev C/S CSection Urgency: Elective CSection Incidence: Repeat Labor: No Labor Elective: Elective CSection Incision: Lower Uterine Transverse BABY A INFORMATION Delivery Date/Time: 01/15/2018 13:02 Method of Delivery: Born in Route : No : N/A Forceps: N/A Vacuum Extraction: N/A Shoulder Dystocia : No SHOULDER DYSTOCIA BABY A Infant Delivery Date/Time: 01/15/2018 13:02 PRESENTATION/POSITION BABY A Presentation: Cephalic Cephalic Presentation: Vertex Breech Presentation: N/A PLACENTA INFORMATION BABY A Placenta Delivery Time : 01/15/2018 13:03 Placenta Method of Delivery: Spontaneous Placenta Status: Delivered SCORES BABY A Heart Rate 1 min: >100 bpm Resp Effort 1 min: Slow, Irregular Reflex Irritability 1 min: Cough or Sneeze or Pulls Away Muscle Tone 1 min: Active Motion Color 1 min: Blue/Pale Resuscitation Effort 1 min: Tactile Stimulation; Oxygen SCORE 1 MIN: 7 Heart Rate 5 min: >100 bpm Resp Effort 5 min: Slow, Irregular Reflex Irritability 5 min: Cough or Sneeze or Pulls Away Muscle Tone 5 min: Active Motion Color 5 min: Body [place], Extremities Blue SCORE 5 MIN: 8 INFANT INFORMATION BABY A Gestational Age at Delivery: 36.0 Gestational Status: Infant Outcome : Liveborn Condition : Stable Infant Sex: Female IDENTIFICATION/MEDS BABY A ID Band Number: [id number] ID Band Location: Left Leg; Left Arm WEIGHT/LENGTH BABY A Birthweight (gms): 2640 Weight (lb): 5 Weight (oz): 13 CORD INFORMATION BABY A No. Cord Vessels: 3 Nuchal Cord : N/A Cord Blood Taken: N/A Suction: None ASSESSMENT BABY A Complications: None Physical Findings at Delivery: Within Normal Limits Respirations: Grunting Make Up Editor/ALS Called : No Care By: Dr. Garcia Transferred To: [facility]
[2018-01-16] MEDS: cefOXitin IV 1 gm in Dextrose 1 GM/50 ML BAG IVPB SCH (02:00)
[2018-01-16 06:58] LABS: HEMOGLOBIN 8.8 g/dL (12.0-16.0); MEAN CELL VOLUME 77.7 fl (81.0-99.0); MEAN CORPUSCULAR HEMOGLOBIN 26.7 pg (27.0-31.0); MEAN CORPUSCULAR HGB CONC 34.3 g/dL (33.0-37.0); RBC 3.29 Mil/uL (3.80-5.20); WHITE BLOOD COUNT 11.9 K/uL (4.8-10.8)
[2018-01-16] MEDS ORDERED: VALACYCLOVIR PO SCH (09:00)
--- NOTE | 2018-01-16 09:55 | OBPPN ---
Datetime: 01/16/2018 09:48 PP Pain Prov: Within normal limits PP Nausea Prov: Denies PP Flatus Prov: Yes PP BM Prov: No PP Breasts Prov: Normal PP Heart Prov: Normal PP Lungs Prov: Normal PP Abdomen/Uterus Prov: Normal PP Lochia Prov: Normal PP Vulva/Perineum Prov: Normal PP CVA Tenderness Prov: Normal PP Extremities Prov: Normal PP C/S Incision Prov: Normal PP Impression Prov: Normal progression PP Plan Prov: Continue present management PP Progress Note Prov: stable pod1 dc vang oob with assistance regular diet may shower dc dressing IP PP Procedures: None Vital Signs Provider PP: Reviewed; Within Normal Limits
[2018-01-16] MEDS: Simethicone 80 mg Chewtab PO PRN (10:03)
[2018-01-16] MEDS: Multivitamin With Minerals Tab PO SCH (10:03)
[2018-01-16] MEDS: Oxycodone/Acetaminophen 5/325 mg Tab PO PRN ×3 (10:08→21:43)
[2018-01-16] MEDS: Tobramycin 0.3% OPHT SOLN OU SCH ×5 (11:31→22:29)
[2018-01-16] MEDS ORDERED: cefOXitin Sodium 1 GM in Sodium Chloride 0.9% 100 ML IV SCH (17:00)
[2018-01-17] MEDS: Tobramycin 0.3% OPHT SOLN OU SCH ×6 (00:22→22:55)
[2018-01-17] MEDS: Oxycodone/Acetaminophen 5/325 mg Tab PO PRN ×3 (08:10→21:57)
[2018-01-17] MEDS: Multivitamin With Minerals Tab PO SCH (09:05)
--- NOTE | 2018-01-17 11:14 | OBPPN ---
Datetime: 01/17/2018 11:10 PP Pain Prov: Within normal limits PP Pain Prov comment: no SOB chest or leg pains PP Nausea Prov: Denies PP Flatus Prov: Yes PP BM Prov: Yes PP Breasts Prov: Normal PP Lungs Prov: Normal PP Abdomen/Uterus Prov: Abnormal PP Lochia Prov: Normal PP Vulva/Perineum Prov: Normal PP CVA Tenderness Prov: Normal PP Extremities Prov: Normal PP C/S Incision Prov: Normal PP Progress Prov: Normal PP Comments Phys Exam Prov: breast NE, NT; Abd soft ND, fundus firm below the umb Incision clean and dry no active bleeding or sign of infection; ext no calf tenderness PP Impression Prov: Normal progression PP Plan Prov: Continue present management PP Progress Note Prov: OOB and ambulation Start po iron IP PP Procedures: None Vital Signs Provider PP: Reviewed
[2018-01-17] MEDS: Simethicone 80 mg Chewtab PO PRN ×2 (16:24→21:57)
[2018-01-18] MEDS: Tobramycin 0.3% OPHT SOLN OU SCH ×4 (00:59→08:33)
[2018-01-18] MEDS: Simethicone 80 mg Chewtab PO PRN (03:39)
--- NOTE | 2018-01-18 07:30 | OBPPN ---
Datetime: 01/18/2018 07:27 PP Pain Prov: Within normal limits PP Pain Prov comment: No SOB, chest or leg pains PP Nausea Prov: Denies PP Flatus Prov: Yes PP BM Prov: Yes PP Breasts Prov: Normal PP Lungs Prov: Normal PP Abdomen/Uterus Prov: Abnormal PP Lochia Prov: Normal PP Vulva/Perineum Prov: Normal PP CVA Tenderness Prov: Normal PP Extremities Prov: Normal PP C/S Incision Prov: Normal PP Progress Prov: Normal PP Comments Phys Exam Prov: Abd soft ND fundus firm below the umb Incision clean and dry no sign of infection, Ext no calf tenderness Breast not engorged NT PP Impression Prov: Normal progression PP Plan Prov: Discharge PP Progress Note Prov: D/C home with instructions and office follow up 1 wk IP PP Procedures: None Vital Signs Provider PP: Reviewed
--- NOTE | 2018-01-18 07:33 | OBDCSUM ---
Datetime: 01/18/2018 07:32 Discharge Diagnosis, Provider: Delivery Discharge Time: 01/18/2018 07:32 Datetime: 01/14/2018 09:51 Disch Instr Activity: Bedrest; May be up to bathroom; May be up for meals; May Shower Discharge Instructions, Provider: Routine instructions given Discharge Diagnosis, Provider: Delivery Discharge Time: 01/14/2018 07:54 Follow up in weeks, Provider: 1 wk Contraception discussed, Prov: Yes Disch Activity Restrictions: No exercising; No lifting; No driving; Minimize walking; Minimize stair -climbing; No sexual activity; Nothing in vagina - [place], tampons, douche Discharge Comment, Provider: rx percocet given Instructions given Discharge Diagnosis Prov Other: oligohydramnios Contraception after Delivery: Undecided
--- NOTE | 2018-01-18 07:35 | OBDCSUM ---
Datetime: 01/18/2018 07:32 Discharged to, Provider: Home Follow up at, Provider: Dr Gomez Disch Instr Activity: Bedrest; May be up to bathroom; May be up for meals; May Shower Disch Instr Diet: Regular Discharge Instructions, Provider: Routine instructions given Discharge Diagnosis, Provider: Delivery Discharge Time: 01/18/2018 07:32 Follow up in weeks, Provider: 1 wk Disch Referrals: None Contraception discussed, Prov: Yes Disch Activity Restrictions: No exercising; No lifting; No driving; Minimize walking; Minimize stair -climbing; No sexual activity; Nothing in vagina - [place], tampons, douche Discharge Comment, Provider: rx Percocet Discharge Diagnosis Prov Other: oligohydramnios Contraception after Delivery: Undecided Datetime: 01/14/2018 09:51 Disch Instr Activity: Bedrest; May be up to bathroom; May be up for meals; May Shower Discharge Instructions, Provider: Routine instructions given Discharge Diagnosis, Provider: Delivery Discharge Time: 01/14/2018 07:54 Follow up in weeks, Provider: 1 wk Contraception discussed, Prov: Yes Disch Activity Restrictions: No exercising; No lifting; No driving; Minimize walking; Minimize stair -climbing; No sexual activity; Nothing in vagina - [place], tampons, douche Discharge Comment, Provider: rx percocet given Instructions given Discharge Diagnosis Prov Other: oligohydramnios Contraception after Delivery: Undecided
[2018-01-18] MEDS: Multivitamin With Minerals Tab PO SCH (08:30)
[2018-01-18 18:14] VITALS: BP 116/74; PULSE 72; TEMP 98; O2SAT 98
--- NOTE | 2018-01-20 08:28 | OP ---
Copied To: Jama Gomez MD Attending MD: Jama Gomez MD PROCEDURE DATE: 01/15/2018 PREOPERATIVE DIAGNOSES: 1. at 36 plus weeks' gestation. 2. Oligohydramnios. 3. Previous section x2. SURGEON: Jama Gomez MD PERMANENT WAVER: Balta Rivera MD and Dr. Clemons. Dr. Rivera was present for the entire duration of the case. Special Equipment Technician needed in providing aide in positioning of the patient, delivering of the baby, and opening and closing of the abdomen. PROCEDURE PERFORMED: Repeat low-transverse segment section. ANESTHESIA USED: Spinal. ANESTHESIOLOGIST: Jacque Otero MD ESTIMATED BLOOD LOSS: 800 mL DRAINS USED: None. REPLACEMENT USED: None. FINDINGS: 1. Delivered a living baby girl. Baby appears adequate for gestational age. Baby cried spontaneously. Airline Security Representative in attendance. scores of 7 and 8. 2. Amniotic fluid clear. 3. Placenta complete and intact. 4. Both tubes and ovaries appeared grossly within normal limits to inspection bilaterally. DESCRIPTION OF PROCEDURE: The patient was taken to the operating room and placed on the operating table in a supine position. At this time, a spinal anesthesia was then induced and the patient was then replaced in a supine position. A Wang catheter was then inserted into the bladder, was draining clear fluid and Venodyne boots were applied to both legs. At this time, the abdomen was then draped and prepped in the usual standard manner. A Pfannenstiel incision was then made using sharp dissection, after checking the anesthesia and found to be well secured. The incision was then extended down to the subcutaneous tissue using sharp dissection. Hemostasis was obtained by means of electrocoagulation. At this time, the fascia was then identified and was entered in midline. Incision in the fascia was then extended laterally on each direction. Following this, we then proceeded to identify the rectus muscle, which was then split at the midline exposing the peritoneum. Peritoneal layer was then picked up using two Pauline clamps, retracted superiorly, and then entered using sharp dissection. The incision on the peritoneum was then extended superiorly and inferiorly under direct visualization. The bladder was identified, was then retracted inferiorly using a [place] retractor. Following this, the low-transverse segment of the uterus was then identified and the vesicouterine peritoneum covering this area was then entered using sharp dissection. Using a blunt dissection, a bladder flap was then created and retracted inferiorly using the same [place] retractor. An incision was then made in the low-transverse segment of the uterus. Upon entering the uterine cavity, clear fluid noted to be present. The incision was then extended laterally on each directions using bandage scissors. At this time, using a manual scooping procedure, a living baby girl was then delivered. The baby appeared adequate for gestational age and baby was immediately aspirated using the bulb suction. The baby cried spontaneously and was handed to the pediatric personnel, who was standing by after clamping the cord. Samples of cord blood were then obtained and the placenta was then delivered complete and intact. The uterus was then exteriorized to provide better visualization. The uterine cavity was then thoroughly cleaned using moist lap pads and the uterus massaged and contracted well. Uterine incision was then held using multiple T clamps and was then approximated using 0 Vicryl sutures in a continuous interlocking manner. A second layer was also applied using 0 Vicryl suture in a continuous manner. Hemostasis was checked and found to be well secured. At this time, the bladder flap was then approximated using 2-0 Vicryl suture in a continuous manner. Following these, we then proceeded to notice that both tubes and ovaries appeared grossly within normal limits to inspection. Free amniotic fluid and blood evacuated from the pelvic cavity and the pelvic cavity was then irrigated using saline solution and the uterus was then allowed to retract back into its original position. Following this, we then proceeded to notice all operative area hemostatically secure and the peritoneum was then approximated using 0 Vicryl suture in a continuous manner. Following this, we then proceeded to approximate the rectus muscle in the midline also using 0 Vicryl suture in a continuous manner. Fascia was then identified, was then approximated using 1 Vicryl suture. Following this, we then proceeded to notice that the fascia was free of defect. Subcutaneous tissue was then irrigated using saline solution and approximated using several interrupted 2-0 plain sutures. The skin was then approximated using 3-0 Prolene in a subcuticular fashion. Steri-Strips were then applied. At this time, the Wang catheter was then checked and was draining clear fluid. Patient tolerated the procedure well. There were no complications. Needle, sponge, and instrument counts were correct x 3. Jama Gomez MD [facility] # [id number]
== END 2018-01-18 12:50 | disposition home or self-care (01) | DRG 651 ==
LOC: H.EROB2 05:59 → H.L&D 06:35 → H.OB/GYN 17:10
PROVIDERS: ADMIT Specialist; ATTEND Specialist
PROC: 10D00Z1 Extraction of Products of Conception, Low, Open Approach (ICD-10-PCS; principal; 2018-01-15)
PROC: 4A1HXCZ Monitoring of Products of Conception, Cardiac Rate, External Approach (ICD-10-PCS; 2018-01-15)
DX: O60.14X0 Preterm labor third trimester with preterm delivery third trimester, not applicable or unspecified (principal); O41.03X0 Oligohydramnios, third trimester, not applicable or unspecified; O34.211 Maternal care for low transverse scar from previous cesarean delivery; Z3A.36 36 weeks gestation of pregnancy; Z37.0 Single live birth; Z91.041 Radiographic dye allergy status